=== PATIENT | male | born 1960 | race Caucasian/White ===

== ENCOUNTER 2020-04-27 12:00 | Outpatient (RCR) | payer OTHER, SELFPAY ==
--- NOTE | 2020-04-25 13:35 | MHC.PT.EP ---
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 pt presents to physical therapy with pain, decreased range of motion, decreased strength, impaired functional mobility, impaired postural awareness, and gait deviations. pt is a good candidate for skilled PT due to age, potential remediation of impairments, typical disease/condition progression and prognosis, comorbidities, and motivation. pt would benefit from tailored strengthening and stretching exercise program, functional training, gait training, postural re-training, neuromuscular re-education, and modalities as needed for pain. Plan is 2x/wk for 4 wks. Frequency and Duration: The patient will be seen 2x/wk for 4 wks Short Term Goals: pt will be I w/ HEP to promote self-management of condition. pt will improve lumbar flexion by 15% to facilitate ease in reaching for objects on the ground. [employer] Goals: pt will report <2/10 low back pain w/ ambulation of 5 x 30' to facilitate return to household ambulation. pt will perform STS transfer w/ no UE assist w/ reports of <2/10 low back pain. Treatment Plan: Modalities to reduce pain, spasms and effusion Manual therapy to restore motion and function Therapeutic exercise to improve strength and flexibility Neuromuscular re-education for posture and balance Therapeutic activities to return to functional activities of daily living Therapeutic Exercise Dynamic Therapeutic Activities Neuromuscular Re-ed Manual Therapies Joint Mobilization Taping Gait Home Exercise Program Patient Education Electrical Stimulation Hot or Cold Pack Please sign and return to therapist. Thank you for your referral.
--- NOTE | 2020-05-10 15:15 | MHC.PT.DC ---
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 Per [facility] Therapy policy, which the patient was aware of and signed, he is discharged for noncompliance. He has a home exercise program of thoracolumbar active range of motion and bilateral lower extremity stretching. Electronically signed by: aKity Garcia PT, DPT Please sign and return to therapist. Thank you for your referral.
== END 2020-05-10 15:16 | disposition other institution (70) ==
LOC: HO.PT 12:00
PROVIDERS: PCP Internal Medicine; Visit Provider Internal Medicine
DX: M47.816 Spondylosis without myelopathy or radiculopathy, lumbar region (principal)
CPT/HCPCS: 97110; 97161

== ENCOUNTER 2020-05-19 09:06 | Outpatient (REF) | payer OTHER, SELFPAY ==
[2020-05-19 10:06] LABS: MANUAL DIFF FLAG NO
[2020-05-19 10:18] LABS: Basophils Absolute Auto 0.1 X10*3/uL (0.0-0.2); Basophils Percent Auto 1.6 % (0-2); Eosinophils Absolute Auto 0.1 X10*3/uL (0.0-0.4); Eosinophils Percent Auto 1.6 % (0-4); Hematocrit 49.5 % (42-52); Hemoglobin 15.7 g/dl (14.0-18.0); Imm Gran Abs Auto 0.02 X10*3/uL (0.00-0.03); Imm Gran Pct Auto 0.3 % (0.0-0.4); Lymphocytes Absolute Auto 2.3 X10*3/uL (1.2-4.9); Lymphocytes Percent Auto 30.4 % (20-40); Mean Corpuscular HGB Conc 31.7 g/dl (31.0-36.0); Mean Corpuscular Hemoglobin 30.1 pg (27.0-33.0); Mean Platelet Volume 11.8 fL (9.4-12.4); Monocytes Absolute Auto 0.8 X10*3/uL (0.1-1.2); Monocytes Percent Auto 10.5 % (2-11); Neutrophils Absolute Auto 4.2 X10*3/uL (2.0-8.3); Neutrophils Percent Auto 55.6 % (45-73); Platelet Count 288 X10*3/uL (160-400); Red Blood Count 5.21 X10*6/uL (4.60-5.80); Red Cell Distribution Width 13.1 % (11.0-16.0); White Blood Count 7.5 X10*3/uL (4.8-10.8)
[2020-05-19 10:27] LABS: Estimated Average Glucose 114 mg/dL; Hemoglobin A1C 149.7871 umol/L; Hemoglobin A1c % 5.6 %
[2020-05-19 11:10] LABS: Alanine Aminotransferase 23 U/L (0-40); Albumin Level 4.4 g/dL (3.5-5.0); Alkaline Phosphatase 74 U/L (39-117); Anion Gap 15 (12-20); Aspartate Amino Transferase 25 U/L (5-37); Bilirubin Total 1.1 mg/dL (0.0-1.0); Blood Urea Nitrogen 11 mg/dL (9-16); Calcium 9.3 mg/dL (8.4-10.2); Carbon Dioxide 27 mmol/L (22-29); Chloride 102 mmol/L (96-108); Cholesterol 208 mg/dL; Estimated Glomerular Filt Rate > 60; Glucose Fasting 101 mg/dL (60-99); HDL Cholesterol 40 mg/dL; LDL Cholesterol Calculated 135 mg/dl; Potassium 4.6 mmol/l (3.3-5.1); Sodium 139 mmol/L (135-145); Total Protein 7.5 g/dL (6.5-8.0); Triglycerides 166 mg/dL
== END 2020-05-19 09:07 | disposition home or self-care (01) ==
LOC: HO.LAB 09:06
PROVIDERS: Visit Provider Physician Assistant
DX: Z13.1 Encounter for screening for diabetes mellitus (principal); Z13.220 Encounter for screening for lipoid disorders; Z12.5 Encounter for screening for malignant neoplasm of prostate
CPT/HCPCS: 36415; 80053; 80061; 83036; 84443; 85025

== ENCOUNTER 2020-06-22 12:00 | Outpatient (REF) | payer OTHER, SELFPAY ==
[2020-06-22 14:25] LABS: Glucose Urine UA NEG (NEG); Leukocyte Esterase Urine NEG (NEG); Nitrite Urine NEG (NEG); PH 8.5 (5.0-8.0); Urine Blood NEG (NEG); Urine Ketones NEG (NEG); Urine Protein NEG (NEG-TRACE)
[2020-06-22 14:29] LABS: Appearance Urine CLEAR; Color Urine YELLOW
[2020-06-22 14:32] LABS: Prostate Specific Antigen Scr 0.56 ng/mL (<0.05-4.0)
[2020-06-22 14:46] LABS: WBC Urine 0 /HPF (0-4)
[2020-06-22 14:47] LABS: RBC Urine 0 /HPF (0); Squamous Epithelial Cell Urine 1+ /LPF
== END 2020-06-22 12:01 | disposition home or self-care (01) ==
LOC: HO.LAB 12:00
PROVIDERS: PCP Internal Medicine; Visit Provider Internal Medicine
DX: R35.0 Frequency of micturition (principal)
CPT/HCPCS: 81001; 84153

== ENCOUNTER 2020-06-24 16:01 | Outpatient (REF) | payer OTHER, SELFPAY ==
--- NOTE | 2020-06-24 16:08 | US_ITS ---
EXAMINATION: US PELVIS LIMITED (BLADDER) CLINICAL INFORMATION: Frequency of micturition. COMPARISON: None TECHNIQUE: Real-time imaging of the bladder. FINDINGS: BLADDER: Partially distended. Bilateral ureteral jets are demonstrated. Prevoid bladder volume is 88.7 mL. Postvoid bladder volume is 16.2 mL. Patient is unable to distend the bladder as requested by PCP. ADDITIONAL FINDINGS: The prostate is better visualized postvoid with a volume of 19.0 mL. It appears homogeneous on the scan. US/US bladder IMPRESSION: Small prevoid volume of 88.7 mL and a small postvoid volume of 16.2 mL. Bilateral ureteral jets seen. =Normal prostate gland size.
== END 2020-06-24 16:02 | disposition home or self-care (01) ==
LOC: HO.US 16:01
PROVIDERS: PCP Internal Medicine; Visit Provider Internal Medicine
DX: R35.0 Frequency of micturition (principal)
CPT/HCPCS: 76857

== ENCOUNTER 2020-08-05 07:53 | Day surgery (SDC) | payer OTHER, SELFPAY ==
--- NOTE | 2020-08-04 09:14 | HO.ANESPROP2 ---
Documented by User: Priscilla Melchor 08/04/20 09:15 HPI - Anesthesia Eval Consult details Narrative: 60yo M for Colonoscopy [facility] Past Medical History Medical History Tobacco abuse Family History Family History (Updated 05/25/20 @ 10:30 by ORQUIDEA Angela) Father No problems noted. Mother No problems noted. Surgical History Surgical History History of appendectomy Social History Social History (Updated 08/05/20 @ 09:41 by Sindy Storm) Smoking Status: Current every day smoker Cigarettes Per Day: 10 Smoked in Last 30 Days: Yes Use of substances other than those prescribed or required for medical reasons: No Advance Directives: No Advance Directives Information Provided: Yes Advance Directives Date on File: 09/02/19 Meds Allergies Allergy/AdvReac Type Severity Reaction Status Date / Time No Known Allergies Allergy Verified 08/05/20 09:02 [No Known Allergies*] Home Medications Medication Instructions Recorded Confirmed Type ibuprofen 800 mg tablet 800 mg PO Q6H 05/26/20 05/26/20 History baclofen 20 mg PO TID PRN 08/05/20 History Exam Exam Date and Time: August 04, [id number] Assessment and Plan Assessment Anesthesia Assessment: Chart Reviewed Documented by User: Sindy Storm 08/05/20 09:44 [facility] Past Medical History Medical History Tobacco abuse Family History Family History (Updated 05/25/20 @ 10:30 by ORQUIDEA Angela) Father No problems noted. Mother No problems noted. Family history of problems with anesthesia: No Surgical History Surgical History History of appendectomy History of Problems with Anesthesia: No Social History Social History (Updated 08/05/20 @ 09:41 by Sindy Storm) Smoking Status: Current every day smoker Cigarettes Per Day: 10 Smoked in Last 30 Days: Yes Use of substances other than those prescribed or required for medical reasons: No Advance Directives: No Advance Directives Information Provided: Yes Advance Directives Date on File: 09/02/19 Meds Allergies Allergy/AdvReac Type Severity Reaction Status Date / Time No Known Allergies Allergy Verified 08/05/20 09:02 [No Known Allergies*] Home Medications Medication Instructions Recorded Confirmed Type ibuprofen 800 mg tablet 800 mg PO Q6H 05/26/20 05/26/20 History baclofen 20 mg PO TID PRN 08/05/20 History Exam Height,Weight and Vital Signs: Vital Signs Temp Pulse Resp BP Pulse Ox 08/05/20 09:11 96.7 F L 54 16 119/75 99 Airway Mallampati Class: II TM Dist: >3cm Neck ROM: Full Loose/Missing/Broken Teeth: Yes (Bottom front right) Heart: RRR Lungs: CTAB Assessment and Plan Assessment Anesthesia Assessment: Anesthesia Plan Discussed and Chart Reviewed Final Anesthetic Review NPO: Yes ASA Class: II Final Preanesthetic Review: No Changes in Pt Med Stat, Meds/Allgs Chart Reviewed, Consent Obtained/Reviewed and Anes Risks/Benef Reviewed Patient Risk: Low Procedure Risk: Low Assessment/Block/Sedation in SS: Assess/Block/Sedation-SS Anesthetic Plan Anesthetic Plan: MAC: Disposition: Standard PACU
[2020-08-05 09:04] VITALS: BMI 22.1
[2020-08-05 09:11] VITALS: BP 119/75; PULSE 54; RESP 16; TEMP 35.9; O2SAT 99
[2020-08-05] MEDS: Lactated Ringers 1,000 ML 100 ML IVCONT (09:26)
--- NOTE | 2020-08-05 09:47 | W.PM.OPN ---
Operative Note Operative Note Date of Service: 08/05/20 Narrative: Pre-op diagnosis: Colon cancer screening Post-op diagnosis: other (Colon polyps, diverticulosis, hemorrhoids) Procedure: COLONOSCOPY TO CECUM WITH BIOPSIES, SNARE POLYPECTOMY AND SUBMUCOSAL INJECTION Consent: Indications for the procedure and potential complications of bleeding, perforation, reaction to medications and missed diagnosis were discussed with the patient and informed consent was obtained. Instrument: Olympus PCF H 190 L variable stiffness pediatric colonoscope Monitoring: Vital signs and clinical assessment, intermittent blood pressure monitoring, continuous EKG monitoring, Pulse oximetry and Carbon Dioxide monitoring were done throughout the procedure. Colon withdrawl time was 45 minutes. Procedure: The patient was placed in the left lateral decubitis position and pre-procedure medications were administered. After a digital rectal examination of the ano-rectum, the video colonoscope was inserted into the rectum and advanced through the colon to the cecum. The colonoscope was slowly withdrawn in a retrograde panoramic fashion and the colon mucosa was carefully examined including a retroflexed view of the rectum. Findings and interventions are described below. Procedure Difficulty: Without difficulty Findings: Terminal Ileum: Not evaluated Cecum: Normal Ascending Colon: An 8-10 mm sessile polyp removed with a hot snare. Transverse Colon: Two 10-15 mm sessile polyps in proximal TC removed with a hot snare. Four 10-20 mm sessile polyps in distal TC removed with a hot snare A 5 x 3 cms polyp/mass overlying a fold at 55 cms (splenic flexure) raised with normal saline (submucosal injection) and not amenable to removal. Four superficial biopsies were obtained and matthew ink injected proximal to the polyp. Descending Colon: Moderate diverticulosis Sigmoid Colon: A 10 - 12 mm sessile polyp removed with a hot snare and moderate diverticulosis Rectum: Two 10-12 mm sessile polyps removed with a hot snare Ano-rectum: Moderate internal hemorrhoids Colon preparation: Good after some irrigation Impression and Post Procedure Diagnosis: Colonoscopy Findings: 10 polyps removed. A 5 x 3 cms polyp/mass overlying a fold at 55 cms (splenic flexure) raised with normal saline and not amenable to removal. Four superficial biopsies were obtained and matthew ink injected proximal to the polyp. Moderate diverticulosis seen in the left colon Moderate hemorrhoids on retroflexed exam. Plan: Await pathology results Patient has an appointment on 08/17/20 in the GI Clinic with Dakota Ro, PA. Repeat Colonoscopy in 1-[address] Gutierrez - if no cancer in polyp at 55 cms - for polyp removal with hybrid APC. Above findings were reviewed with the patient and [colon polyps] and [diverticulosis] handouts were given in the discharge area BIOPSIES SHOWED: A. Colon, ascending, polypectomy: Tubular adenoma; no high grade dysplasia or carcinoma seen. B. Colon, transverse, polypectomy: Fragments of tubular adenoma; no high-grade dysplasia or carcinoma seen. C. Colon, transverse at 55 cm, polypectomy: Fragments of tubular adenoma; no high-grade dysplasia or carcinoma seen. D. Colon, transverse #2, polypectomies: Tubular and tubulovillous adenomas; no high grade dysplasia or carcinoma seen. E. Colon, sigmoid, polypectomy: Hyperplastic mucosal polyp. F. Rectum, polypectomy: Hyperplastic mucosal polyp. Surgeon: Jennifer Ashley MD Anesthesia: MAC (RORY Faulkner) Estimated blood loss (mL): 0 Pathology: other (A. Polyp AC, B. Polyp, TC, C. Polyp TC 55 cm, D. Polyps TC # 2, E. Polyp SC, F. Rectal polyp) Condition: stable Disposition: PACU
--- NOTE | 2020-08-05 09:47 | MHC.SHP ---
Pre-Procedural Eval Section A The patient is an INPATIENT: No The History & Physical has been completed within 30 days and I have reviewed it.: No Section B Chief Complaint: Screening Details of Present Illness: Colon cancer screening, lower abdominal pain Relevant Family History (Specify if Yes): No Relevant Social History: Tobacco Use Present Medications: see Short Stay Collaborative assessment Medical History: Significant History (Low Back pain) History of Previous Operations: Relevant previous surgery/procedure and date(s) (appendectomy) Allergies: Allergies Allergy/AdvReac Type Severity Reaction Status Date / Time No Known Allergies Allergy Verified 08/05/20 09:02 [No Known Allergies*] Review of Systems Sugical H&P ROS: Negative: Constitution, Cardiovascular and Respiratory and Yes, Specify: Gastrointestinal (lower abdominal pain) Exam Surgical H&P Exam: Normal: Heart, Normal: Lungs, Normal: Extremities and Normal: Abdomen Plan Diagnosis/Plan: Unchanged I have reviewed the history and physical and performed a pertinent physical examination on my patient. No changes have occurred unless specified.
[2020-08-05 11:01] VITALS: BP 117/72; PULSE 76; RESP 22; TEMP 35.6; O2SAT 100
[2020-08-05 11:16] VITALS: BP 133/76; PULSE 63; RESP 20; TEMP 36.2; O2SAT 100
[2020-08-05 11:31] VITALS: BP 120/74; PULSE 68; RESP 18; TEMP 36.2; O2SAT 98
--- NOTE | 2020-08-05 11:50 | HO.POSTANES ---
Post Anesthesia Evaluation Post Anesthesia Evaluation Vital Signs: Vital Signs Temp Pulse Resp BP Pulse Ox 08/05/20 11:31 97.2 F 68 18 120/74 98 08/05/20 11:16 97.2 F 63 20 133/76 100 08/05/20 11:01 96.0 F L 76 22 H 117/72 100 08/05/20 09:11 96.7 F L 54 16 119/75 99 Anesthesia: Monitored Mental Status: Awake Pain Control: Satisfactory Nausea/Vomiting: None Hydration: Adequate Anesthesia-Related Issues: No Anes. Related Issues
== END 2020-08-05 11:53 | disposition home or self-care (01) ==
PROVIDERS: PCP Internal Medicine; Visit Provider Internal Medicine Gastroenterology
PROC: 0DJD8ZZ Inspection of Lower Intestinal Tract, Via Natural or Artificial Opening Endoscopic (ICD-10-PCS; CPT 45378; principal; 2020-08-05 10:10)
DX: Z12.11 Encounter for screening for malignant neoplasm of colon (principal); D12.2 Benign neoplasm of ascending colon; D12.3 Benign neoplasm of transverse colon; K63.5 Polyp of colon; K62.1 Rectal polyp; K57.30 Diverticulosis of large intestine without perforation or abscess without bleeding; K64.8 Other hemorrhoids; F17.210 Nicotine dependence, cigarettes, uncomplicated; Z79.899 Other long term (current) drug therapy
CPT/HCPCS: 45385; 45380; 45381; 88305

== ENCOUNTER → 2020-08-17 11:06 | Outpatient (BNVA) | payer OTHER, SELFPAY | PROVIDERS: PCP Internal Medicine; Visit Provider Physician Assistant | DX: Z76.89 Persons encountering health services in other specified circumstances (principal) ==

== ENCOUNTER 2020-09-20 07:07 | Day surgery (SDC) | payer OTHER, SELFPAY ==
[2020-09-14 12:38] VITALS: BMI 23.3
--- NOTE | 2020-09-19 08:23 | HO.ANESPROP2 ---
Documented by User: Priscilla Melchor 09/19/20 08:24 HPI - Anesthesia Eval Consult details Narrative: 60yo M for Colonoscopy with Hybrid APC s/p colonoscopy with polypectomy 08/05/20 with [facility] Active Problems Active Problems: All Active Problems (Updated 09/14/20 @ 11:58 by Anne-Marie Houser) Lumbar spine pain (Acute) Colon cancer screening (Acute) Frequency of micturition (Acute) Impaired fasting glucose (Acute) Hypercholesterolemia (Acute) Colon polyps (Acute) Tobacco abuse (Acute) Past Medical History Medical History (Updated 09/14/20 @ 11:58 by Anne-Marie Houser) History of back pain History of pneumonia Tobacco abuse Family History Family History (Updated 09/15/20 @ 12:03 by Carmen Tomlinson [facility]) Father No problems noted. Mother No problems noted. Sister No problems noted. Sister No problems noted. Surgical History Surgical History (Updated 09/14/20 @ 11:57 by Anne-Marie Houser) History of appendectomy History of tooth extraction Hx of colonoscopy Social History Social History (Updated 09/20/20 @ 08:07 by Sindy Storm) Alcohol intake: current Alcohol intake frequency: 0-2 drinks per day Alcohol type: beer Smoking Status: Current every day smoker Tobacco Type: Cigarette Cigarettes Per Day: 10 Smoked in Last 30 Days: Yes Advance Directives: Yes Advance Directives Information Provided: No Advance Directives on File: No Advance Directives Date on File: 09/02/19 Recently lost weight without trying: No Meds Allergies Allergy/AdvReac Type Severity Reaction Status Date / Time No Known Allergies Allergy Verified 09/20/20 07:22 [No Known Allergies*] Home Medications Medication Instructions Recorded Confirmed Last Taken Type ibuprofen 800 mg tablet 800 mg PO Q6H 05/26/20 09/14/20 Unknown History baclofen 20 mg PO TID PRN 08/05/20 09/14/20 Unknown History Exam Exam Date and Time: September 19, [id number] Height,Weight and Vital Signs: Height 5 ft 9 in Weight 71.668 kg Assessment and Plan Assessment Anesthesia Assessment: Chart Reviewed Documented by User: Sindy Storm 09/20/20 08:08 HPI - Anesthesia Eval Consult details Narrative: Large polyp 5x3cm at 55cm found at colonoscopy in 08/11. Unable to be removed. For removal today. [facility] Past Medical History Medical History (Updated 09/14/20 @ 11:58 by Anne-Marie Houser) History of back pain History of pneumonia Tobacco abuse Family History Family History (Updated 09/15/20 @ 12:03 by Carmen Tomlinson [facility]) Father No problems noted. Mother No problems noted. Sister No problems noted. Sister No problems noted. Family history of problems with anesthesia: No Surgical History Surgical History (Updated 09/14/20 @ 11:57 by Anne-Marie Houser) History of appendectomy History of tooth extraction Hx of colonoscopy History of Problems with Anesthesia: No Social History Social History (Updated 09/20/20 @ 08:07 by Sindy Storm) Alcohol intake: current Alcohol intake frequency: 0-2 drinks per day Alcohol type: beer Smoking Status: Current every day smoker Tobacco Type: Cigarette Cigarettes Per Day: 10 Smoked in Last 30 Days: Yes Advance Directives: Yes Advance Directives Information Provided: No Advance Directives on File: No Advance Directives Date on File: 09/02/19 Recently lost weight without trying: No Meds Allergies Allergy/AdvReac Type Severity Reaction Status Date / Time No Known Allergies Allergy Verified 09/20/20 07:22 [No Known Allergies*] Home Medications Medication Instructions Recorded Confirmed Last Taken Type ibuprofen 800 mg tablet 800 mg PO Q6H 05/26/20 09/14/20 Unknown History baclofen 20 mg PO TID PRN 08/05/20 09/14/20 Unknown History Exam Height,Weight and Vital Signs: Vital Signs Temp Pulse Resp BP Pulse Ox 09/20/20 07:27 97.8 F 60 16 138/80 99 Airway Mallampati Class: II TM Dist: >3cm Neck ROM: Full Loose/Missing/Broken Teeth: Yes (No teeth) Heart: RRR Lungs: CTAB Assessment and Plan Assessment Anesthesia Assessment: Anesthesia Plan Discussed and Chart Reviewed Final Anesthetic Review NPO: Yes ASA Class: II Final Preanesthetic Review: No Changes in Pt Med Stat, Meds/Allgs Chart Reviewed, Consent Obtained/Reviewed and Anes Risks/Benef Reviewed Patient Risk: Low Procedure Risk: Low Assessment/Block/Sedation in SS: Assess/Block/Sedation-SS Anesthetic Plan Anesthetic Plan: GA Disposition: Standard PACU
[2020-09-20] VITALS (7 sets, daily range): BP systolic 121–144; BP diastolic 71–83; PULSE 54–60; RESP 16–20; TEMP 36.1–36.6; O2SAT 98–100
--- NOTE | 2020-09-20 07:20 | P.HPSUR_ITS ---
Pre-Procedural Eval Section B Chief Complaint: rectal polyp Relevant Family History (Specify if Yes): No Relevant Social History: Tobacco Use Present Medications: see Short Stay Collaborative assessment Medical History: Significant History (History of back pain History of pneumonia Tobacco abuse) History of Previous Operations: Relevant previous surgery/procedure and date(s) (History of appendectomy History of tooth extraction Hx of colonoscopy) Allergies: Allergies Allergy/AdvReac Type Severity Reaction Status Date / Time No Known Allergies Allergy Verified 09/15/20 12:03 [No Known Allergies*] Review of Systems Sugical H&P ROS: Negative: Constitution, Cardiovascular, Respiratory, Neurological, Psychiatric, Hem-Onc, Allergic/Immunologic, Gastrointestinal, Genitourinary, Musculoskeletal, Integumentary, Endocrine and Eyes/Ears/Nose/Throat Exam Surgical H&P Exam: Normal: HEENT, Normal: Heart, Normal: Lungs, Normal: Extremit ies, Normal: Abdomen, Normal: Skin and Normal: Neurological Plan Diagnosis/Plan: Unchanged I have reviewed the history and physical and performed a pertinent physical examination on my patient. No changes have occurred unless specified.
[2020-09-20] MEDS: Lactated Ringers 1,000 ML 100 ML IVCONT (07:43)
--- NOTE | 2020-09-20 10:12 | PM.OP ---
Brief Operative Note Date of Service: 09/20/20 Post-op diagnosis: same Procedure: see op note Surgeon: Pacheco Gutierrez MD Anesthesia: GETA and MAC Estimated blood loss (mL): 0 Condition: stable Disposition: PACU
--- NOTE | 2020-09-20 10:13 | W.PM.OPN ---
Operative Note Operative Note Date of Service: 09/20/20 Narrative: Operative Information Procedure Description: Colonoscopy COLONOSCOPY Instrument: Olympus variable stiffness pediatric scope 190L Colonoscopy Monitoring: Vital signs and clinical assessment, continuous EKG monitoring, Pulse oximetry, Carbon Dioxide monitoring and blood pressure monitoring were done throughout the procedure. Colon withdrawal time was 45 minutes. Procedure: The patient was placed in the left lateral decubitis position and pre-procedure medications were administered. After a digital rectal examination of the ano-rectum, the video colonoscope was inserted into the rectum and advanced through the colon to the cecum/TI. The colonoscope was slowly withdrawn in a retrograde panoramic fashion and the colon mucosa was carefully examined including a retroflexed view of the rectum. Findings and interventions are described below. Procedure Difficulty:easy Findings: Terminal Ileum-normal Cecum:normal Ascending Colon: normal Transverse Colon -normal Splenic flexure- 5 x 4 cm granular laterally spreading polypoid lesion noted. This was injected using ERBE jet with saline/methylene blue and lifted. It was then piece meal resected. Further injections of saline were performed after the polypoid tissue was debulked and then straight fire APC applied to the margins and the resected polyp area. 5 clips were then applied for closure of the defect. another 2 sessile polyps noted adjacent to the area in the transverse colon and removed with cold snare. Descending Colon:normal Sigmoid Colon: normal Rectum: Retroflexion with medium sized internal hemorrhoids, grade I Anorectum - normal Colon preparation: [place] Bowel Preparation Scale Right colon; 3 Transverse colon: 3 Left colon; 3 (0 = Unprepared colon segment with mucosa not seen due to solid stool that cannot be cleared. 1 = Portion of mucosa of the colon segment seen, but other areas of the colon segment not well seen due to staining, residual stool and/or opaque liquid. 2 = Minor amount of residual staining, small fragments of stool and/or opaque liquid, but mucosa of colon segment seen well. 3 = Entire mucosa of colon segment seen well with no residual staining, small fragments of stool or opaque liquid) Impression and Post Procedure Diagnosis: polyps s/p hybrid APC and cold snare resection internal hemorrhoids Plan: High fiber diet leaflet Avoid straining at stool, epsom salts and sitz bath, anusol supps or cream Repeat Colonoscopy in 3-4 months avoid nsaids for 5 days 7 d course of cipro and flagyl Above findings were reviewed with the patient and relevant handouts were provided if indicated.
== END 2020-09-20 11:26 | disposition home or self-care (01) ==
PROVIDERS: PCP Internal Medicine; Visit Provider Internal Medicine Gastroenterology
PROC: 0DJD8ZZ Inspection of Lower Intestinal Tract, Via Natural or Artificial Opening Endoscopic (ICD-10-PCS; CPT 45378; principal; 2020-09-20 08:30)
DX: K62.1 Rectal polyp (principal); D12.3 Benign neoplasm of transverse colon; K64.0 First degree hemorrhoids; Z79.1 Long term (current) use of non-steroidal anti-inflammatories (NSAID); Z79.899 Other long term (current) drug therapy; F17.210 Nicotine dependence, cigarettes, uncomplicated; Z87.01 Personal history of pneumonia (recurrent); Z87.898 Personal history of other specified conditions
CPT/HCPCS: 45388; 45385; 45381; 88305; C2618; J0690; J1100; J2250; J2370; J2405; J3010; Q9968

== ENCOUNTER 2021-01-19 06:59 | Outpatient (REF) | payer OTHER, SELFPAY ==
[2021-01-19 07:42] LABS: MANUAL DIFF FLAG NO
[2021-01-19 07:43] LABS: Basophils Absolute Auto 0.1 X10*3/uL (0.0-0.2); Basophils Percent Auto 1.2 % (0-2); Eosinophils Absolute Auto 0.1 X10*3/uL (0.0-0.4); Eosinophils Percent Auto 0.8 % (0-4); Hematocrit 51.3 % (42-52); Hemoglobin 17.2 g/dl (14.0-18.0); Imm Gran Abs Auto 0.03 X10*3/uL (0.00-0.03); Imm Gran Pct Auto 0.3 % (0.0-0.4); Lymphocytes Absolute Auto 2.2 X10*3/uL (1.2-4.9); Lymphocytes Percent Auto 22.1 % (20-40); Mean Corpuscular HGB Conc 33.5 g/dl (31.0-36.0); Mean Corpuscular Hemoglobin 31.9 pg (27.0-33.0); Mean Corpuscular Volume 95.2 fL (80-98); Mean Platelet Volume 10.9 fL (9.4-12.4); Monocytes Absolute Auto 1.1 X10*3/uL (0.1-1.2); Monocytes Percent Auto 11.3 % (2-11); Neutrophils Absolute Auto 6.4 X10*3/uL (2.0-8.3); Neutrophils Percent Auto 64.3 % (45-73); Platelet Count 251 X10*3/uL (160-400); Red Blood Count 5.39 X10*6/uL (4.60-5.80); Red Cell Distribution Width 15.3 % (11.0-16.0); White Blood Count 9.9 X10*3/uL (4.8-10.8)
[2021-01-19 08:12] LABS: Estimated Average Glucose 114 mg/dL; Hemoglobin A1c % 5.6 %
[2021-01-19 08:13] LABS: Alanine Aminotransferase 35 U/L (0-40); Albumin Level 4.3 g/dL (3.5-5.0); Alkaline Phosphatase 76 U/L (39-117); Anion Gap 14 (12-20); Aspartate Amino Transferase 56 U/L (5-37); Bilirubin Total 2.5 mg/dL (0.0-1.0); Blood Urea Nitrogen 16 mg/dL (9-16); Calcium 9.7 mg/dL (8.4-10.2); Carbon Dioxide 25 mmol/L (22-29); Chloride 105 mmol/L (96-108); Cholesterol 258 mg/dL; Estimated Glomerular Filt Rate > 60; Glucose Random 103 mg/dL (60-115); HDL Cholesterol 70 mg/dL; LDL Cholesterol Calculated 167 mg/dl; Potassium 5.1 mmol/L (3.3-5.1); Sodium 139 mmol/L (135-145); Total Protein 7.6 g/dL (6.5-8.0); Triglycerides 108 mg/dL
[2021-01-19 08:35] LABS: Free T4 (Free Thyroxine) 1.15 ng/dL (0.71-1.85)
[2021-01-19 08:44] LABS: Vitamin B12 156 pg/mL (200-900)
== END 2021-01-19 07:00 | disposition home or self-care (01) ==
LOC: HO.LAB 06:59
PROVIDERS: PCP Internal Medicine; Visit Provider Internal Medicine
DX: R73.01 Impaired fasting glucose (principal); E78.00 Pure hypercholesterolemia, unspecified
CPT/HCPCS: 36415; 80053; 80061; 82607; 82746; 83036; 84439; 84443; 85025

== ENCOUNTER 2023-07-19 16:17 | Outpatient (AMB) | payer OTHER, SELFPAY ==
--- NOTE | 2023-07-19 16:23 | MHC.PC.OV ---
Vital Signs 07/19/23 16:25 Height 5 ft 9 in Weight 164 lb 2 oz BMI 24.2 BP 120/70 Blood Pressure Location Lt brachial Position Sitting Pulse 76 Pulse Source Pulse Oximeter Pulse Oximetry (%) 98 Oxygen Delivery Method Room Air Intake Visit Reasons: Annual PE Intake Note: Patient is here today for a physical. 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 policy Accompanied by: Self / Same As Patient Allergies No Known Allergies [No Known Allergies*] Allergy (Verified 07/19/23 16:24) Medication List - Last Reconciled 07/19/23 by Kourtney Hogan MD bupropion HCl (Wellbutrin SR) 150 mg PO BID 12 weeks Tobacco use date assessed: 07/19/23 Dental Screening Dental Screen Date: 07/19/23 Did you have a dental visit in the last 12 months?: Yes Did you have a dental problem in the last 6 months where you did not have access to dental care?: No Was dental information given to patient?: Patient has dentist HPI Annual PE HPI Details 63-year-old male smoker with impaired glucose tolerance tubular adenoma of the colon hypercholesterolemia coming in for physical exam. Last seen in 2020. Patient had colonoscopy done in 2020 and was advised to get it done in 3-4 months. Ash [id number] [facility] Medical History (Updated 07/19/23 @ 17:21 by Kourtney Hogan MD) Scrotal wall abscess Colon polyps History of back pain History of pneumonia Tobacco abuse Surgical History Hx of colonoscopy History of tooth extraction History of appendectomy Family History (Updated 07/19/23 @ 16:35 by ORQUIDEA Gutierrez) Father No problems noted. Mother No problems noted. Sister No problems noted. Sister No problems noted. Social History (Updated 07/19/23 @ 16:58 by Kourtney Hogan MD) Housing: Other Housing Other:: with family Alcohol intake: current Alcohol intake frequency: a few times a month Alcohol type: beer Comment: 2x a month 4-5 drinks Patient Tobacco Use Status: Current everyday Tobacco user Tobacco use type: Cigarette Cigarette Packs Per Day: 1 Cigarettes Per Day: 20 Years Smoked: since 13 years old e-Cigarette/Vaping Use: Never Used Second Hand Smoke Exposure: Yes Advance Directives Date on File: 09/02/19 service: No Current occupational status: unemployed Current occupational exposures/hazards: No Cognitive needs: No Hearing needs: No Vision needs: No Questionnaire PHQ-9 Over the last 2 weeks, how often have you been bothered by any of the following problems? 1. Little interest or pleasure in doing things: not at all 2. Feeling down, depressed, or hopeless: not at all 3. Trouble falling or staying asleep, or sleeping too much: not at all 4. Feeling tired or having little energy: not at all 5. Poor appetite or overeating: not at all 6. Feeling bad about yourself - or that you are a failure or have let yourself or your family down: not at all 7. Trouble concentrating on things, such as reading the newspaper or watching television: not at all 8. Moving or speaking so slowly that other people could have noticed. Or the opposite - being so fidgety or restless that you have been moving around a lot more than usual: not at all 9. Thoughts that you would be better off or of hurting yourself in some way: not at all Total score: 0 Depression Screening Interpretation: Negative Depression Screening Done: Yes Source: Developed by Drs. Hitesh Darling, Poornima Mederos, Kb Jacobsen and colleagues, with an educational irish from [employer]. Thrive Questionnaire Date Thrive assessed: 07/19/23 I am a: Patient What is your living situation today?: I have a steady place to live Within the past 12 months, did the food you bought not last and you didn't have the money to get more?: Never true Within the past 12 months, did you worry whether your food would run out before you got money to buy more?: Never true Do you have trouble paying for medicines?: No Do you have trouble getting transportation to medical appointments?: No Do you have trouble paying your heating and electricity bill?: No Do you have trouble taking care of your child, family member or friend?: No Do you have trouble with day-to-day activities such as bathing, preparing meals, shopping, managing finances, etc.?: No Are you currently unemployed and looking for a job?: No Are you interested in more education?: No Currently or been in a relationship where the following occur: no concerns reported AUDIT C Alcohol Use Questionnaire (AUDIT-C) 1. How often do you have a drink containing alcohol?: Monthly or less 2. How many drinks containing alcohol do you have on a typical day when you are drinking?: 1 or 2 Total Score: 1 FRANCIA-7 AMB Questionnaire FRANCIA-7 Date FRANCIA - 7 assessed: 07/19/23 Feeling nervous, anxious, or on edge: 0 = Not at all Not being able to stop or control worryin = Not at all Worrying too much about different things: 0 = Not at all Trouble relaxin = Not at all Being so restless that it is hard to sit still: 0 = Not at all Becoming easily annoyed or irritable: 0 = Not at all Feeling afraid as if something awful might happen: 0 = Not at all Total FRANCIA-7 score (0-4 normal; 5-9 mild; 10-14 moderate; 15-21 severe): 0 Source: Developed by Drs. Hitesh Darling, Poornima Mederos, Kb Jacobsen and colleagues, with an educational irish from [employer]. Review of Systems Const Denies poor appetite and Denies weakness Eyes Denies no additional complaints ENT Reports Normal hearing present, Denies dizziness, Denies nasal congestion, Denies tinnitus and Denies sore throat Card Denies chest pain, Denies syncope, Denies rapid heart rate and Denies dyspnea Resp Denies cough and Denies dyspnea GI Denies change in stool character, Reports constipation, Denies diarrhea, Denies nausea and Denies vomiting Denies dysuria and Denies urinary frequency Neuro Reports Normal hearing present, Denies confusion, Denies dizziness, Denies syncope and Denies weakness Psych Denies confusion Physical exam (Primary Care) Vital Signs: Last Vital Signs Pulse 76 07/19/23 16:25 BP 120/70 07/19/23 16:25 Pulse Ox 98 07/19/23 16:25 Oxygen Delivery Method Room Air 07/19/23 16:25 BMI result Body Mass Index 24.2 Tobacco/Smoking Status: Tobacco use Status Tobacco use date assessed 07/19/23 07/19/23 16:37 Patient Tobacco Use Status Current everyday Tobacco 07/19/23 16:37 Tobacco use type Cigarette 07/19/23 16:37 e-Cigarette/Vaping Use Never Used 07/19/23 16:37 PHQ-9: PHQ-9 Score PHQ-9: Total score 0 07/19/23 16:46 Depression Screening Interpretation: Negative Thrive Assessment: Date of Thrive Assessment Date Thrive assessed 07/19/23 07/19/23 16:37 Currently or been in a relationship where the following occur: no concerns reported Const General: No confusion Orientation/consciousness: No confusion HENMT Head: Yes normocephalic Ears: external ears normal and TM's normal bilaterally Face and sinus: Yes normal facial exam Mouth: moist mucous membranes Throat: Yes tonsils normal Eyes Conjunctivae: conjunctivae normal Pupils: Equal, round and reactive pupils present and Pupil accommodation reflex normal Direct Ophthalmoscopy: normal light reflex Neck Neck: No lymphadenopathy Thyroid: Thyroid normal Chest Chest palpation & inspection: normal inspection of the chest Resp Effort & Inspection: normal respiratory effort and no audible wheezes Auscultation: clear to auscultation bilaterally, no crackles, no wheezes and lung sounds not diminished Cardio Rate: regular rate Rhythm: regular rhythm Peripheral pulses: radial pulses present and dorsalis pedis present GI Palpation (GI): no masses Auscultation: normal bowel sounds and normoactive bowel sounds Rectal Exam - Male: Yes deferred Skin General skin exam: no rashes or lesions noted Rashes: no rashes Neuro General: No confusion Cranial nerves: Yes Equal, round and reactive pupils present and Yes Normal hearing present Cognition (Neuro): normal cognition Gait exam (Neuro): Normal gait present Motor exam (neuro): 5/5 motor strength present throughout Deep tendon reflexes (DTR's): Right brachioradialis reflex intensity grade: 2+, Left brachioradialis reflex intensity grade: 2+, Right patellar reflex intensity grade: 2+ and Left patellar reflex intensity grade: 2+ Extrem General: No edema Assessment and Plan Assessment & Plan (1) Annual physical exam: Code(s): Z00.00 - Encounter for general adult medical examination without abnormal findings (2) Vitamin B 12 deficiency: Code(s): E53.8 - Deficiency of other specified B group vitamins Plan: Will need to retest (3) Impaired fasting glucose: Code(s): R73.01 - Impaired fasting glucose Plan: Decrease the amount of carbohydrate intake, pasta, bread, rice and potatoes are all sugar and that is aside from all the sweet stuff, remember that fruits are good but they are Sweet also. (4) Hypercholesterolemia: Code(s): E78.00 - Pure hypercholesterolemia, unspecified Plan: Avoid fried foods, chicken skin, eggs, butter margarine, pastries and meat. Be it pork or beef they have a lot of cholesterol LDL goal of less than 130 and triglyceride of less than 150 (5) Tubular adenoma of colon: Code(s): D12.6 - Benign neoplasm of colon, unspecified Plan: Reminded about colonoscopy (6) Tobacco abuse: Code(s): Z72.0 - Tobacco use Plan: Strongly advised to stop smoking (7) Mass of postauricular area: Code(s): R22.0 - Localized swelling, mass and lump, head (8) Scrotal cyst: Code(s): L72.9 - Follicular cyst of the skin and subcutaneous tissue, unspecified Orders: Orders Complete Blood Count Auto Diff Today E78.00 - Pure hypercholesterolemia, unspecified Free T4 (Free Thyroxine) Today E78.00 - Pure hypercholesterolemia, unspecified Thyroid Stimulating Hormone Today E78.00 - Pure hypercholesterolemia, unspecified Hemoglobin A1c Today R73.01 - Impaired fasting glucose Intrinsic Factor Antibodies Today E53.8 - Deficiency of other specified B group vitamins Comprehensive Met. Panel Today E78.00 - Pure hypercholesterolemia, unspecified Vitamin B12 and Folate Today E78.00 - Pure hypercholesterolemia, unspecified Lipid Panel Today E78.00 - Pure hypercholesterolemia, unspecified Prostate Specific Antigen Scr Today R73.01 - Impaired fasting glucose Parietal Cell Antibody Today E53.8 - Deficiency of other specified B group vitamins Referrals Gastroenterology Referral D12.6 - Benign neoplasm of colon, unspecified Thoracic Surgery Referral Z72.0 - Tobacco use Urology Referral L72.9 - Follicular cyst of the skin and subcutaneous tissue, unspecified General Surgery Referral R22.0 - Localized swelling, mass and lump, head Medications: New bupropion HCl (Wellbutrin SR) 150 mg PO BID 12 weeks 168 tabs 0RF Z72.0 - Tobacco use Coding Level of Care Code Est Pt Prev Care 40-64y([id number]) Diagnoses Annual physical exam Z00.00 Vitamin B 12 deficiency E53.8 Impaired fasting glucose R73.01 Hypercholesterolemia E78.00 Tubular adenoma of colon D12.6 Tobacco abuse Z72.0 Mass of postauricular area R22.0 Scrotal cyst L72.9
[2023-07-19 16:25] VITALS: BP 120/70; PULSE 76; O2SAT 98; BMI 24.2
== END 2023-07-19 17:31 | disposition home or self-care (01) ==
PROVIDERS: PCP Internal Medicine; Visit Provider Internal Medicine
DX: Z00.00 Encounter for general adult medical examination without abnormal findings (principal); E53.8 Deficiency of other specified B group vitamins; R73.01 Impaired fasting glucose; E78.00 Pure hypercholesterolemia, unspecified; D12.6 Benign neoplasm of colon, unspecified; Z72.0 Tobacco use; R22.0 Localized swelling, mass and lump, head; L72.9 Follicular cyst of the skin and subcutaneous tissue, unspecified
CPT/HCPCS: 99396

== ENCOUNTER 2023-07-26 09:50 | Outpatient (AMB) | payer OTHER, SELFPAY ==
--- NOTE | 2023-07-26 10:04 | AM.OFFVISNUR ---
Intake Intake Visit Reasons: flu vaccine Allergies No Known Allergies [No Known Allergies*] Allergy (Verified 07/19/23 16:24) Office Procedures Flu Questionnaire Does the patient have a severe egg allergy?: No Does the patient have severe life threatening allergies?: No Does the patient have a fever or illness today?: No Has the patient ever had Guillain-Mesa Syndrome?: No Has the patient ever had any past reaction to a flu shot?: No Immunizations flu vacc [id number] 6mos up(PF) 60 mcg(15 mcgx4)/0.5 mL IM syringe Performing Provider: Kourtney Hogan MD Performing Location: [facility] Administered by: TIFFANIE Griffith on 07/26/23 10:04 Dose Route Admin Location Dispensed Lot Number Expiration Date NDC Crm Manager 0.5 mL IM Right Deltoid 0.5 mL [id number] 01/19/24 22415-642-45 [employer] VIS Given Date VIS Provided VIS Publication Date 07/26/23 Single Vaccine 21 Eligibility Eligibility Date Funding Source Not [facility] Eligible 07/26/23 Private Coding Assessment & Plan Assessment & Plan Orders: Orders Influenza [id number] Immunization Today Z23 - Encounter for immunization
== END 2023-07-26 14:16 | disposition home or self-care (01) ==
PROVIDERS: PCP Internal Medicine; Visit Provider Internal Medicine
DX: Z23 Encounter for immunization (principal)
CPT/HCPCS: 90471; 90686

== ENCOUNTER 2023-09-20 10:02 | Outpatient (AMB) | payer OTHER, SELFPAY ==
--- NOTE | 2023-09-20 10:06 | A.OFFVIS_ITS ---
Intake Intake Visit Reasons: LDCT SD Allergies No Known Allergies [No Known Allergies*] Allergy (Verified 07/19/23 16:24) HPI HPI Comments History of Present Illness Details Rg is a pleasant 63 year old male, current smoker with a 50 PYH. Patient has been smoking since age 13 for 50 years at 1 ppd. Denies marijuana use. 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 Denies second hand smoke exposure. Denies known family history of lung cancer. Denies personal history of cancers. Denies chest CT in last year. Denies recent travel outside the [place]. Denies testing positive for COVID. Admits receiving COVID Vaccine x 3. Denies fever, chills, chest pain, new cough, hemoptysis or unintentional weight loss. Lung Cancer Screening Questionnaire reviewed with patient by provider. Shared Decision Making Completed. Discussed in detail with patient, the risk versus benefit of LDCT screening. Patient in agreement of proceeding with scan. [facility] Medical History (Updated 09/03/23 @ 13:19 by Janie Mayfiled NP) Scrotal wall abscess Colon polyps History of back pain History of pneumonia Tobacco abuse Surgical History Hx of colonoscopy History of tooth extraction History of appendectomy Family History (Updated 07/19/23 @ 16:35 by ORQUIDEA Gutierrez) Father No problems noted. Mother No problems noted. Sister No problems noted. Sister No problems noted. Social History (Updated 07/19/23 @ 16:58 by Kourtney Hogan MD) Housing: Other Housing Other:: with family Alcohol intake: current Alcohol intake frequency: a few times a month Alcohol type: beer Comment: 2x a month 4-5 drinks Patient Tobacco Use Status: Current everyday Tobacco user Tobacco use type: Cigarette Cigarette Packs Per Day: 1 Cigarettes Per Day: 20 Years Smoked: since 13 years old e-Cigarette/Vaping Use: Never Used Second Hand Smoke Exposure: Yes Advance Directives Date on File: 09/02/19 service: No Current occupational status: unemployed Current occupational exposures/hazards: No Cognitive needs: No Hearing needs: No Vision needs: No Assessment & Plan Assessment & Plan (1) Nicotine dependence, cigarettes, uncomplicated: Code(s): F17.210 - Nicotine dependence, cigarettes, uncomplicated Plan Shared decision-making visit completed today in office. This patient meets criteria for LDCT for lung cancer screening purposes and is asymptomatic. Ricky mojica smoking cessation. Patient has been scheduled for a low dose chest CT for screening purposes at [facility]. We discussed how the results will be obtained depending on CT findings. RADS 1 and RADS 2 will receive a letter with results and will follow up for annual LDCT. Patient informed they will be contacted at later date to schedule upcoming LDCT scan. RADS 3 and RADS 4 will receive a telephone call, or an office visit after reviewing case at our Lung Cancer Conference to determine when the next LDCT will be scheduled or further interventions that may be needed. Discussed importance of screening program and compliance with yearly LDCT scan as scheduled. Risks, benefits, and alternatives were discussed in detail and patient agrees to proceed. Risks discussed include but are not limited to: radiation exposure and possibility of additional intervention for benign disease. Benefits include detection of lung cancer at an early stage. A copy of today's visit and LDCT results will be sent to patient's PCP. Incidental findings on LDCT are PCP's responsibility. If there are incidental findings, our office will ensure that PCP office is aware of these findings. All questions were answered and patient is in agreement of plan. Coding Level of Care Code Lung Cancer Screening G0296 Diagnoses Nicotine dependence, cigarettes, uncomplicated F17.210
== END 2023-09-20 13:09 | disposition home or self-care (01) ==
PROVIDERS: PCP Internal Medicine; Referring Provider Internal Medicine; Visit Provider Nurse Practitioner Family
DX: F17.210 Nicotine dependence, cigarettes, uncomplicated (principal)
CPT/HCPCS: G0296

== ENCOUNTER 2023-09-20 10:17 | Outpatient (REF) | payer OTHER, SELFPAY ==
--- NOTE | ~2023-09-20 | CT_ITS ---
EXAMINATION: CT CHEST SCREENING CLINICAL INFORMATION: Current smoker. COMPARISON: CT chest 08/29/2019. TECHNIQUE: Multidetector volumetric CT imaging of the chest is performed without contrast using low-dose technique. Additional 2D coronal and sagittal reformatted images and axial 3D maximum intensity projection (MIP) images are generated on the CT workstation. This CT examination was performed using dose optimization techniques as appropriate, variously including the following: *Automated exposure control *Adjustment of mA and/or kV according to patient size (this includes techniques or standardized protocols for targeted exams where dose is matched to indication/reason for exam; i.e. extremities or head) *Use of iterative reconstruction technique DLP: 47 mGy-cm FINDINGS: LUNGS: Mild emphysematous changes are present along with peribronchial thickening. Scattered calcified pulmonary granulomas are seen, unchanged from prior. The previously seen dense consolidation in the right lower lobe has resolved since the prior study. The lungs are otherwise clear with no evidence of inflammation or concerning nodules. MEDIASTINUM: The mediastinum is normal. CORONARY ARTERY CALCIFICATION: None visualized on this study. PLEURA: There is no pleural effusion. No pleural mass or thickening. AXILLA: No lymphadenopathy. UPPER ABDOMEN: Unremarkable. OSSEOUS STRUCTURES: Unremarkable. CT/CT lung screening IMPRESSION: Mild emphysema and peribronchial thickening with scattered granulomas. No suspicious lung masses are seen. ASSESSMENT: Lung-RADS category 2: Benign. RECOMMENDATION: Routine annual low-dose CT screening in 12 months.
== END 2023-09-20 10:18 | disposition home or self-care (01) ==
LOC: HO.CT 10:17
PROVIDERS: PCP Internal Medicine; Visit Provider Nurse Practitioner Family
DX: Z12.2 Encounter for screening for malignant neoplasm of respiratory organs (principal); F17.210 Nicotine dependence, cigarettes, uncomplicated
CPT/HCPCS: 71271; G0296

== ENCOUNTER 2023-09-30 07:40 | Outpatient (AMB) | payer OTHER, SELFPAY ==
--- NOTE | 2023-09-30 07:52 | MHC.OFFVIS ---
Intake Vital Signs 09/30/23 08:03 Height 5 ft 9 in Weight 161 lb BMI 23.8 BP 143/66 H Blood Pressure Location Lt brachial Position Sitting Pulse 76 Intake Visit Reasons: pre colonoscopy screening Intake Note: Patient follow up for pre colonoscopy screening. Patient denies any GI issues. Commercial Finance Analyst Required: Yes Commercial Finance Analyst Name: Murphy [id number] Accompanied by: Self / Same As Patient Allergies No Known Allergies [No Known Allergies*] Allergy (Verified 09/30/23 09:42) Medication List - Last Reconciled 09/30/23 by Anaya Ro PA-C bupropion HCl (Wellbutrin SR) 150 mg PO BID 12 weeks HPI HPI Comments History of Present Illness Details Commercial Finance Analyst device - A 63 y/o male seen in the office back in2020-been had colonoscopy 09/2020 however he never followed Up after colonoscopy with polypectomy- he never returned for repeat colonoscopy as recommended We reviewed previous colonoscopy with pathology as below He has been in [place] until- recent- no procedures there-Apppetite good-Bowels normal He is trying to quit smoking- He has no nausea, vomiting, hematemesis, hematochezia fever or chills 09/2020- Dr. BHARDWAJ Impression and Post Procedure Diagnosis: polyps s/p hybrid APC and cold snare resection internal hemorrhoids Plan: High fiber diet leaflet Avoid straining at stool, epsom salts and sitz bath, anusol supps or cream Repeat Colonoscopy in 3-4 months avoid nsaids for 5 days 7 d course of cipro and flagyl Name: Eda JoshiRg Age/Sex: 60/M Attending: Pacheco Bhardwaj MD : 1960 Submitted by: Pacheco Bhardwaj MD Copies to: Kourtney Hogan MD MR #: [id number] Status: [facility] Collected: 09/20/20 Location: [facility] Received: 09/20/20 Diagnosis A. Colon, splenic flexure, polypectomy: Fragments of tubular adenoma; negative for high grade dysplasia and carcinoma. B. Colon, transverse, polypectomy: Fragments of tubular adenoma; negative for high grade dysplasia and carcinoma. Clinical History Pre-Op Dx: Colon polyp Post-Op Dx: Colon polyps, hemorrhoids Microscopic Description Microscopic sections reviewed. Material Received A: Splenic flexure polyp, methylene blue used B: Transverse colon polyp Gross Description Received in two parts. Part A: Received in formalin labeled Splenic flexure polyp are multiple irregular and papular fragments of focally blue, dye-stained and verde-brown tissue, ranging from minute to 0.6 cm. in greatest dimension and aggregating 1.8 x 1.2 x 0.1 - 0.4 cm. Sectioning the larger fragments reveals filiform, verde cut surfaces. The specimen is entirely submitted in a single cassette labeled A. Part B: Received in formalin labeled Transverse colon polyp are several glistening, focally hyperemic and congested, focally blue, dye-stained, verde-pink, irregular, rectangular and papular tissue fragments, ranging from 0.3 to 0.6 cm. in greatest dimension and aggregating 1.2 x 1.2 x 0.4 cm. Sectioning the larger papular fragments reveals filiform, verde-pink cut surfaces. The specimen is entirely submitted in a single cassette labeled B. CEDS Copies To Pacheco Bhardwaj MD [address] [place], [place] [address]Nicolas Patient: Eda Page 1 of 2 me: Rg Corona Age/Sex: 60/M Attending: Jennifer Ashley MD : 1960 Submitted by: Jennifer Ashley MD Copies to: MR #: [id number] Status: [facility] Collected: 08/05/20 Location: [facility] Received: 08/05/20 Diagnosis A. Colon, ascending, polypectomy: Tubular adenoma; no high grade dysplasia or carcinoma seen. B. Colon, transverse, polypectomy: Fragments of tubular adenoma; no high-grade dysplasia or carcinoma seen. C. Colon, transverse at 55 cm, polypectomy: Fragments of tubular adenoma; no high-grade dysplasia or carcinoma seen. D. Colon, transverse #2, polypectomies: Tubular and tubulovillous adenomas; no high grade dysplasia or carcinoma seen. E. Colon, sigmoid, polypectomy: Hyperplastic mucosal polyp. F. Rectum, polypectomy: Hyperplastic mucosal polyp. Clinical History Pre-Op Dx: Screening Post-Op Dx: Colon polyps, hemorrhoids, diverticulosis Microscopic Description A-F. Microscopic sections reviewed. Material Received A. Ascending colon polyp B. Transverse colon polyp C. Transverse colon polyp at 55 D. Transverse colon polyps #2 E. Sigmoid polyp F. Rectal polyp Gross Description Received in six parts. Part A: Received in formalin labeled Ascending colon polyp is a 0.25 cm. in greatest dimension, glistening, semitranslucent, soft, verde-pink, irregular tissue fragment, which is submitted in toto in a single cassette labeled A. Patient: Eda Page 1 of 2 [facility] Medical History Tubulovillous adenoma Scrotal wall abscess Colon polyps History of back pain History of pneumonia Tobacco abuse Surgical History Hx of colonoscopy History of tooth extraction History of appendectomy Family History Father No problems noted. Mother No problems noted. Sister No problems noted. Sister No problems noted. Social History Housing: Other Housing Other:: with family Alcohol intake: current Alcohol intake frequency: a few times a month Alcohol type: beer Comment: 2x a month 4-5 drinks Patient Tobacco Use Status: Current everyday Tobacco user Tobacco use type: Cigarette Cigarette Packs Per Day: 1 Cigarettes Per Day: 20 Years Smoked: since 13 years old e-Cigarette/Vaping Use: Never Used Second Hand Smoke Exposure: Yes Advance Directives Date on File: 09/02/19 service: No Current occupational status: unemployed Current occupational exposures/hazards: No Cognitive needs: No Hearing needs: No Vision needs: No Review of Systems Const All systems reviewed & are unremarkable except as noted in HPI and below Card Reports chest pain and Denies dyspnea Resp Denies dyspnea Physical Exam Vital Signs: Last Vital Signs Pulse 76 09/30/23 08:03 BP 143/66 H 09/30/23 08:03 BMI result Body Mass Index 23.8 Const General: cooperative, healthy appearing, comfortable, no acute distress and alert Orientation/consciousness: patient oriented x3 Limitations: language barrier Eyes Conjunctivae: conjunctival abnormal (injected bilat) Resp Effort & Inspection: normal respiratory effort and able to speak in complete sentences Auscultation: clear to auscultation bilaterally, no rales, no rhonchi and no wheezes Cardio Rate: regular rate Rhythm: regular rhythm Heart sounds: S1 normal heart sound present and S2 normal heart sound present GI Palpation (GI): Soft to palpation and nontender Auscultation: normal bowel sounds Neuro General: patient oriented x3 Extrem General: Yes full ROM Psych Appearance: well kempt Mental Status: mental status grossly normal Speech and movement: Normal speech and movement present Affect: normal affect Attitude: cooperative Thought process: Normal thought process present Thought content: Normal thought content present Assessment & Plan Assessment & Plan (1) Tubular adenoma of colon: Comment: Overdue for polyp surveillance Code(s): D12.6 - Benign neoplasm of colon, unspecified (2) Tubulovillous adenoma: Code(s): D36.9 - Benign neoplasm, unspecified site Plan colon- try w/ Bhardwaj- pls MG Needs interp pls Orders: Orders Colonoscopy - GI Use Only Today D12.6 - Benign neoplasm of colon, unspecified, D36.9 - Benign neoplasm, unspecified site Complete Blood Count Auto Diff Today D12.6 - Benign neoplasm of colon, unspecified, D36.9 - Benign neoplasm, unspecified site Comprehensive Met. Panel Today E78.00 - Pure hypercholesterolemia, unspecified, R73.01 - Impaired fasting glucose Medications: New bisacodyl (Dulcolax (bisacodyl)) Day before procedure @ 12 noon Take 4 tablets by mouth followed by large glass of water 20 mg (4 x 5 mg) PO ONCE 1 day PRN 4 tabs 0RF colonoscopy prep Z12.11 - Encounter for screening for malignant neoplasm of colon polyethylene glycol 3350 (Miralax) Take as directed by mouth the day before your procedure. 238 grams PO ONCE 1 day 238 grams 0RF laxative effect Patient Instructions: colon- try w/ Bhardwaj- pls MG prep reviewed, literature given Reinforced importance of follow through Will update labs and system get CBC and a CMP Encouraged to call questions or concerns Coding Level of Care Code New Pt Level 3 (31280) Diagnoses Tubular adenoma of colon D12.6 Tubulovillous adenoma D36.9 Time Spent (min) 30 Comment [id number]
[2023-09-30 08:03] VITALS: BP 143/66; PULSE 76; BMI 23.8
== END 2023-09-30 08:46 | disposition home or self-care (01) ==
PROVIDERS: PCP Internal Medicine; Visit Provider Physician Assistant
DX: D12.6 Benign neoplasm of colon, unspecified (principal); D36.9 Benign neoplasm, unspecified site
CPT/HCPCS: 99203

== ENCOUNTER → 2023-09-30 07:40 | Outpatient (BNVA) | payer OTHER, SELFPAY | PROVIDERS: PCP Internal Medicine; Visit Provider Physician Assistant | DX: M79.89 Other specified soft tissue disorders (principal); D12.6 Benign neoplasm of colon, unspecified; D36.9 Benign neoplasm, unspecified site | CPT/HCPCS: 99202 ==

== ENCOUNTER 2023-09-30 09:18 | Outpatient (AMB) | payer OTHER, SELFPAY ==
--- NOTE | 2023-09-30 09:35 | MHC.OFFVIS ---
Intake Vital Signs 09/30/23 09:39 Height 5 ft 9 in Weight 166 lb BMI 24.5 BP 149/73 H Blood Pressure Location Rt brachial Position Sitting Pulse 69 Intake Visit Reasons: scalp cyst Intake Note: Patient referred by PCP Dr. Hogan for evaluation of growth on Lt postauricular ear. Present for 1yr. Similar lesion growing on Rt side. Patient c/o: bad odor when squeezed. Cleans with alcohol. Parlor Chaperone Required: No Accompanied by: Self / Same As Patient Allergies No Known Allergies [No Known Allergies*] Allergy (Verified 09/30/23 09:42) HPI HPI Comments History of Present Illness Details Patient presents with approximate 1 year history of a left postauricular mass/lesion. His increasing in size, become more symptomatic. He wished to have removed. He has a smaller version this on the right postauricular area but is not symptomatic yet. Chart was reviewed and patient evaluated [facility] Medical History Tubulovillous adenoma Scrotal wall abscess Colon polyps History of back pain History of pneumonia Tobacco abuse Surgical History Hx of colonoscopy History of tooth extraction History of appendectomy Family History Father No problems noted. Mother No problems noted. Sister No problems noted. Sister No problems noted. Social History Housing: Other Housing Other:: with family Alcohol intake: current Alcohol intake frequency: a few times a month Alcohol type: beer Comment: 2x a month 4-5 drinks Patient Tobacco Use Status: Current everyday Tobacco user Tobacco use type: Cigarette Cigarette Packs Per Day: 1 Cigarettes Per Day: 20 Years Smoked: since 13 years old e-Cigarette/Vaping Use: Never Used Second Hand Smoke Exposure: Yes Advance Directives Date on File: 09/02/19 service: No Current occupational status: unemployed Current occupational exposures/hazards: No Cognitive needs: No Hearing needs: No Vision needs: No Physical Exam Vital Signs: Last Vital Signs Pulse 69 09/30/23 09:39 BP 149/73 H 09/30/23 09:39 BMI result Body Mass Index 24.5 HEENT Other: No gross cervical periclavicular axillary adenopathy. Patient has proximally 4 x 3 cm postauricular lesion consistent with a complex sebaceous cyst. Chest Other: Chest breath sounds bilaterally, HS 1 in 2 GI Other: Abdomen soft, benign Assessment & Plan Assessment & Plan (1) Soft tissue mass: Code(s): M79.89 - Other specified soft tissue disorders Plan Risks, benefits, alternatives of excision of this left postauricular soft tissue mass were reviewed with the patient and included but not limited to bleeding, infection, recurrence, numbness, pain, scarring, seroma formation, wound dehiscence and the patient wishes to proceed. All questions answered. Arrangements will be made for this. Coding Level of Care Code New Pt Level 5 (68231) Diagnoses Soft tissue mass M79.89
[2023-09-30 09:39] VITALS: BP 149/73; PULSE 69; BMI 24.5
== END 2023-09-30 10:32 | disposition home or self-care (01) ==
PROVIDERS: PCP Internal Medicine; Visit Provider Surgery
DX: M79.89 Other specified soft tissue disorders (principal)
CPT/HCPCS: 99204

== ENCOUNTER 2024-01-11 21:35 | Emergency (ER) | payer OTHER, SELFPAY ==
[2024-01-11 21:39] VITALS: BP 142/73; PULSE 87; RESP 18; TEMP 36.3; O2SAT 97; BMI 23.5
--- NOTE | 2024-01-12 00:30 | ED.GENADULT ---
HPI - General Adult General Chief complaint: General Medical Stated complaint: groin abscess Time Seen by Provider: 01/11/24 23:50 Source: patient and family Mode of arrival: ambulatory History of Present Illness ED Provider: Dr Dumont [facility] narrative: 63-year-old male with ongoing sores along ventral shaft of the penis, as well as on upper portion of suprapubic area along shaved line. Patient states this is been ongoing for months. Related Data Previous Rx's ?Medication ?Instructions ?Recorded bupropion HCl 150 mg tablet,12 hr 150 mg PO BID 12 weeks #168 tabs 07/19/23 sustained-release (Wellbutrin SR) bisacodyl 5 mg tablet,delayed 20 mg (4 x 5 mg) PO ONCE PRN 09/30/23 release (Dulcolax (bisacodyl)) colonoscopy prep 1 day #4 tabs polyethylene glycol 3350 17 238 g PO ONCE laxative effect 1 09/30/23 gram/dose oral powder (Miralax) day #238 grams cephalexin 500 mg capsule 500 mg PO BID 5 days #10 caps 01/12/24 doxycycline monohydrate 100 mg 100 mg PO BID 5 days #10 caps 01/12/24 capsule Allergies Allergy/AdvReac Type Severity Reaction Status Date / Time No Known Allergies Allergy Verified 01/11/24 21:41 [No Known Allergies*] Review of Systems Review of Systems: Pertinent positives and negatives as stated in [facility] Past Medical History Source: nursing notes reviewed Medical History Tubulovillous adenoma Scrotal wall abscess Colon polyps History of back pain History of pneumonia Tobacco abuse Surgical History Hx of colonoscopy History of tooth extraction History of appendectomy Family History Family History Father No problems noted. Mother No problems noted. Sister No problems noted. Sister No problems noted. Social History Social History Housing: Other Housing Other:: with family Alcohol intake: current Alcohol intake frequency: a few times a month Alcohol type: beer Comment: 2x a month 4-5 drinks Patient Tobacco Use Status: Current everyday Tobacco user Tobacco use type: Cigarette Cigarette Packs Per Day: 1 Cigarettes Per Day: 20 Years Smoked: since 13 years old e-Cigarette/Vaping Use: Never Used Second Hand Smoke Exposure: Yes Advance Directives: Yes Advance Directives on File: Yes Advance Directives Date on File: 09/02/19 Do you have a plan to hurt others: No Plan service: No Current occupational status: unemployed Current occupational exposures/hazards: No Cognitive needs: No Hearing needs: No Vision needs: No Physical Exam ED Vital Signs: Vital Signs - 24 hr 01/11/24 21:39 01/12/24 00:53 01/12/24 01:00 Temperature 97.4 F 98.2 F 98.2 F Pulse Rate 87 54 54 Respiratory Rate 18 16 16 Blood Pressure 142/73 H 120/65 120/65 Pulse Oximetry 97 97 97 Oxygen Delivery Method Room Air Room Air BMI result Body Mass Index 23.5 VITAL SIGNS: Reviewed. GENERAL: Well developed, well nourished, in no acute distress. HEAD: Normocephalic/atraumatic EYES: PERRLA, EOMI LUNGS: Normal breath sounds. No adventitious sounds or accessory muscle use. SpO2<97> CARDIOVASCULAR: Regular rate and rhythm without noted murmurs ABDOMEN: Soft, non-tender, non-distended with bowel sounds. : There is a small area of what appears to be folliculitis/associated with shaved area, there are cysts along the ventral shaft of the penis and on the scrotum where the penis lies on the scrotum MUSCULOSKELETAL: No tenderness, deformities, or effusions noted on gross inspection. EXTREMITIES: No cyanosis, clubbing or edema. SKIN: Inspection of the skin reveals no rashes NEUROLOGIC: Alert and oriented x 4. Strength and sensation to light touch were grossly intact x 4. Medications Administered Discontinued Medications Generic Name Dose Route Start Last Admin Trade Name Freq PRN Reason Stop Dose Admin Cephalexin HCl 500 mg 01/12/24 00:32 01/12/24 00:48 Cephalexin 500 Mg Capsule PO 01/12/24 00:33 500 mg ONCE ONE Administration Doxycycline Monohydrate 100 mg 01/12/24 00:32 01/12/24 00:48 Doxycycline Monohydrate 100 Mg Capsule PO 01/12/24 00:33 100 mg ONCE ONE Administration Medical Decision Making Medical Decision Making MDM Narrative: 63-year-old male with what appears to be a folliculitis on the suprapubic area, and then epidermoid cysts along the scrotum and shaft of the penis, these are not consistent with chancres/ulcerations/herpes. Patient instructed to use warm compresses and place on antibiotics and instructed to follow-up with his primary care doctor. Differential Diagnosis Differential Diagnoses: The differential diagnosis associated with the presentation includes Please see the discussion above Admission/Observation Consideration of admission/observation: Escalation of care including admission/observation considered Please see the discussion above Critical Care Time Critical Care Time Critical Care Time: Yes Total Critical Care Time: 30 Attestation: I personally attest to this time spent taking care of the patient. Discharge Plan Discharge Clinical Impression: Carbuncle and furuncle Patient Disposition: Home, Self-Care Instructions: Furunculosis and Carbunculosis (ED), Warm Compress or Soak (ED) Additional Instructions: 1. Complete entire course of antibiotics. 2. Continue with warm compresses. 3. Follow-up with your primary care doctor by calling the office on Saturday. Return to the ER for any worsening symptoms. Prescriptions: New doxycycline monohydrate 100 mg capsule 100 mg PO BID 5 Days Qty: 10 0RF cephalexin 500 mg capsule 500 mg PO BID 5 Days Qty: 10 0RF No Action bupropion HCl [Wellbutrin SR] 150 mg tablet sustained-release 12 hr 150 mg PO BID 84 Days Qty: 168 0RF bisacodyl [Dulcolax (bisacodyl)] 5 mg tablet,delayed release (DR/EC) 20 mg PO ONCE PRN (Reason: colonoscopy prep) 1 Days Qty: 4 0RF Rx Instructions: Day before procedure @ 12 noon Take 4 tablets by mouth followed by large glass of water polyethylene glycol 3350 [Miralax] 17 gram/dose powder 238 g PO ONCE 1 Days Qty: 238 0RF Rx Instructions: Take as directed by mouth the day before your procedure. Referrals: Po,Kourtney Clifford MD [Primary Care Provider] - Interventions: ED Discharge Assessment Last Done: 01/12/24 01:00 Discharge Date/Time: 01/12/24 01:01 Print Language: Greek
[2024-01-12] MEDS: cephALEXin 500 MG CAPSULE PO (00:48)
[2024-01-12] MEDS: Doxycycline Monohydrate 100 MG CAPSULE PO (00:48)
[2024-01-12 00:53] VITALS: BP 120/65; PULSE 54; RESP 16; TEMP 36.8; O2SAT 97
[2024-01-12 01:00] VITALS: BP 120/65; PULSE 54; RESP 16; TEMP 36.8; O2SAT 97
== END 2024-01-12 01:01 | disposition home or self-care (01) ==
PROVIDERS: Emergency Provider Student in an Organized Health Care Education/Training Program; PCP Internal Medicine
DX: N48.21 Abscess of corpus cavernosum and penis (principal); F17.210 Nicotine dependence, cigarettes, uncomplicated
CPT/HCPCS: 99282; 99283

== ENCOUNTER 2024-08-17 15:29 | Emergency (ER) | payer OTHER, SELFPAY ==
--- NOTE | ~2024-08-17 | CT_ITS ---
CLINICAL HISTORY: low back pain status post fall CT lumbar spine without contrast Comparison: None Findings: Normal vertebral body alignment. No acute fractures or dislocations. Multilevel degenerative changes of the lumbar spine with narrowing of the intervertebral disc space and osteophyte formation. There is vacuum phenomena in the L4-L5 and L5-S1. Normal visualized abdominal contents. IMPRESSION: No acute findings. This document has been electronically signed by: Yady Santo MD on 08/17/2024 17:26:09
[2024-08-17 15:35] VITALS: BP 151/75; PULSE 67; RESP 16; TEMP 37.1; O2SAT 97; BMI 21.4
--- NOTE | 2024-08-17 15:38 | ED_ITS ---
HPI - General Adult General Chief complaint: Fall Stated complaint: fell 08/17 back pain Time Seen by Provider: 08/17/24 20:19 Source: patient Limitations: language barrier History of Present Illness ED Provider: Frida Malone PA-C HPI narrative: 64-year-old male with chronic back pain and hyperlipidemia presents after fall. Patient states he was walking his dog, he subsequently slipped on the ice falling backwards landing on his buttock and back. Patient now with pain across his entire lower back. Patient is experiencing muscle spasm. The pain does not radiate down either extremity. Denies weakness of lower extremities, paresthesia, urinary retention or bowel incontinence. Related Data Previous Rx's ?Medication ?Instructions ?Recorded bupropion HCl 150 mg tablet,12 hr 150 mg PO BID 12 weeks #168 tabs 07/19/23 sustained-release (Wellbutrin SR) bisacodyl 5 mg tablet,delayed 20 mg (4 x 5 mg) PO ONCE PRN 09/30/23 release (Dulcolax (bisacodyl)) colonoscopy prep 1 day #4 tabs polyethylene glycol 3350 17 238 g PO ONCE laxative effect 1 09/30/23 gram/dose oral powder (Miralax) day #238 grams cephalexin 500 mg capsule 500 mg PO BID 5 days #10 caps 01/12/24 doxycycline monohydrate 100 mg 100 mg PO BID 5 days #10 caps 01/12/24 capsule meloxicam 15 mg tablet 15 mg PO DAILY #7 tabs 08/17/24 methocarbamol 750 mg tablet 1,500 mg (2 x 750 mg) PO Q8H PRN 08/17/24 pain, moderate #20 tabs Allergies Allergy/AdvReac Type Severity Reaction Status Date / Time No Known Allergies Allergy Verified 08/17/24 15:38 [No Known Allergies*] Review of Systems Review of Systems: Yes all other systems are reviewed and are negative Constitutional: Constitutional: Denies fatigue and Denies fever(s) Cardiovascular: Cardiovascular: Denies chest pain and Denies dyspnea Respiratory: Respiratory: Denies dyspnea Gastrointestinal: Gastrointestinal: Denies abdominal pain Musculoskeletal: Musculoskeletal: Reports back pain, Denies muscle weakness, Denies numbness and Denies radiating pain into limb Neurologic: Denies numbness Endocrine: Endocrine: Denies fatigue PMF Past Medical History Attestation statement: The following information was validated with the patient. Medical History (Updated 08/17/24 @ 21:24 by YADY Myles) Tubular adenoma of colon Nicotine dependence, cigarettes, uncomplicated Scrotal wall abscess Colon polyps History of back pain History of pneumonia Surgical History (Updated 08/10/24 @ 13:12 by Janene Turner PA-C) History of colonoscopy History of tooth extraction History of appendectomy Family History Family History Father No problems noted. Mother No problems noted. Sister No problems noted. Sister No problems noted. Social History Social History Housing: Other Housing Other:: with family Alcohol intake: current Alcohol intake frequency: a few times a month Alcohol type: beer Comment: 2x a month 4-5 drinks Patient Tobacco Use Status: Current everyday Tobacco user Tobacco use type: Cigarette Cigarette Packs Per Day: 1 Cigarettes Per Day: 20 Years Smoked: since 13 years old e-Cigarette/Vaping Use: Never Used Second Hand Smoke Exposure: Yes Advance Directives: No Advance Directives Information Provided: No Advance Directives Date on File: 09/02/19 Do you have a plan to hurt others: No Plan service: No Current occupational status: unemployed Current occupational exposures/hazards: No Cognitive needs: No Hearing needs: No Vision needs: No Physical Exam ED Vital Signs: Vital Signs - 24 hr 08/17/24 15:35 08/17/24 20:41 Temperature 98.8 F 98.4 F Pulse Rate 67 61 Respiratory Rate 16 16 Blood Pressure 151/75 H 164/84 H Pulse Oximetry 97 97 Oxygen Delivery Method Room Air Room Air BMI result Body Mass Index 21.4 Const Other: Alert well-appearing Orientation/consciousness: patient oriented x3 Resp Effort & Inspection: normal respiratory effort Cardio Other: Normal peripheral perfusion Skin Other: Warm dry no rash Neuro Other: Antalgic gait General: patient oriented x3, no focal motor deficits and CN's II-XI intact bilaterally Psych Other: Cooperative Course Course Course Narrative: RME performed by Hermelinda Safnord PA-C. Patient is a 64 year old assigned male at presenting to the emergency department with low back pain after a slip and fall outside. Patient states that he was letting the dog out this morning when he slipped and fell, landing on his low back. Patient denies any head strike or loss of consciousness. Detailed physical exam and review of systems are deferred to the human resources designate. Imaging ordered. Patient placed back in the waiting room pending room availability and results. Medical Decision Making Medical Decision Making [facility] Narrative: 64-year-old male with chronic back pain and hyperlipidemia presents after fall. Patient states he was walking his dog, he subsequently slipped on the ice falling backwards landing on his buttock and back. Patient now with pain across his entire lower back. Patient is experiencing muscle spasm. The pain does not radiate down either extremity. Denies weakness of lower extremities, paresthesia, urinary retention or bowel incontinence. Problem: Age and chronic back pain History: Per patient I have considered the following differential diagnoses: Compression fracture, lumbar strain with spasm, lumbar radiculopathy, cauda equina Plan: Imaging ordered from triage, patient has degenerative changes there was no evidence of fracture. We will treat him for musculoskeletal strain without radicular symptoms. He has no red flag signs symptoms concerning for cord compression. I have independently reviewed the following tests: CT lumbar spine: Comparison: None Findings: Normal vertebral body alignment. No acute fractures or dislocations. Multilevel degenerative changes of the lumbar spine with narrowing of the intervertebral disc space and osteophyte formation. There is vacuum phenomena in the L4-L5 and L5-S1. Normal visualized abdominal contents. IMPRESSION: No acute findings. This document has been electronically signed by: Yady Santo MD on 08/17/2024 17:26:09 Discharge Plan Discharge Clinical Impression: Acute lumbar myofascial strain Patient Disposition: Home, Self-Care Instructions: Low Back Strain (ED), Core Strengthening Exercises (ED) Additional Instructions: The CT scan of your lower back revealed that you have arthritis, this is chronic. There were no fractures. You are being treated for low back strain. See home care instructions. Use the meloxicam as directed, this is an anti- inflammatory, take it daily with food. Use the methocarbamol as needed for fur ther pain and muscle spasm, this is a muscle relaxant. It will cause you to become drowsy, do not drive or operate machinery while taking the medication. Follow up with your primary care provider, you may require physical therapy as an outpatient. Prescriptions: New methocarbamol 750 mg tablet 1,500 mg PO Q8H PRN (Reason: pain, moderate) Qty: 20 0RF meloxicam 15 mg tablet 15 mg PO DAILY Qty: 7 0RF No Action doxycycline monohydrate 100 mg capsule 100 mg PO BID 5 Days Qty: 10 0RF cephalexin 500 mg capsule 500 mg PO BID 5 Days Qty: 10 0RF bupropion HCl [Wellbutrin SR] 150 mg tablet sustained-release 12 hr 150 mg PO BID 84 Days Qty: 168 0RF bisacodyl [Dulcolax (bisacodyl)] 5 mg tablet,delayed release (DR/EC) 20 mg PO ONCE PRN (Reason: colonoscopy prep) 1 Days Qty: 4 0RF Rx Instructions: Day before procedure @ 12 noon Take 4 tablets by mouth followed by large glass of water polyethylene glycol 3350 [Miralax] 17 gram/dose powder 238 g PO ONCE 1 Days Qty: 238 0RF Rx Instructions: Take as directed by mouth the day before your procedure. Stand Alone Forms: Work/School Release Print Language: Montserratian
[2024-08-17 20:41] VITALS: BP 164/84; PULSE 61; RESP 16; TEMP 36.9; O2SAT 97
[2024-08-17] MEDS: Ketorolac Tromethamine 15 MG/ML VIAL IM (21:23)
[2024-08-17 21:49] VITALS: BP 164/84; PULSE 61; RESP 16; TEMP 36.9; O2SAT 97
== END 2024-08-17 21:49 | disposition home or self-care (01) ==
PROVIDERS: Emergency Provider Emergency Medicine
DX: S39.012A Strain of muscle, fascia and tendon of lower back, initial encounter (principal); W00.0XXA Fall on same level due to ice and snow, initial encounter; M54.50 Low back pain, unspecified; Y93.K1 Activity, walking an animal; Y92.414 Local residential or business street as the place of occurrence of the external cause; Y99.9 Unspecified external cause status
CPT/HCPCS: 72131; 96372; 99283; 99284; J1885

== ENCOUNTER → 2024-08-17 15:38 | Outpatient (BNV) | payer OTHER, SELFPAY | PROVIDERS: Visit Provider Nuclear Medicine | DX: M51.360 Other intervertebral disc degeneration, lumbar region with discogenic back pain only (principal) | CPT/HCPCS: 72131 ==

== ENCOUNTER 2024-08-23 08:52 | Emergency (ER) | payer SELFPAY ==
[2024-08-23 08:56] VITALS: BP 135/80; PULSE 69; RESP 18; TEMP 36.5; O2SAT 100; BMI 22.1
--- NOTE | 2024-08-23 09:40 | ED.GENADULT ---
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 He reports his back pain began after sliping on ice while walking his dog, falling backwards and landing on his buttocks/ low back. He was evaluated at [facility] ED at that time with negative CT scans. He was prescribed meloxicam and methocarbamol which he has been taking at home with minimal improvement. Endorses continued low back pain. Pain runs along his lower back. No radiation. No new injury/ trauma/ falls. He states he is supposed to return to work tomorrow however is concerned and would like his work note extended. Denies hx of IVDU. Denies previous spinal surgery. Denies saddle anesthesia, bowel/bladder incontinence or retention, numbness/tingling/weakness of the lower extremities, dysuria, hematuria, fever/chills. Related Data Previous Rx's ?Medication ?Instructions ?Recorded bupropion HCl 150 mg tablet,12 hr 150 mg PO BID 12 weeks #168 tabs 07/19/23 sustained-release (Wellbutrin SR) bisacodyl 5 mg tablet,delayed 20 mg (4 x 5 mg) PO ONCE PRN 09/30/23 release (Dulcolax (bisacodyl)) colonoscopy prep 1 day #4 tabs polyethylene glycol 3350 17 238 g PO ONCE laxative effect 1 09/30/23 gram/dose oral powder (Miralax) day #238 grams cephalexin 500 mg capsule 500 mg PO BID 5 days #10 caps 01/12/24 doxycycline monohydrate 100 mg 100 mg PO BID 5 days #10 caps 01/12/24 capsule meloxicam 15 mg tablet 15 mg PO DAILY #7 tabs 08/17/24 methocarbamol 750 mg tablet 1,500 mg (2 x 750 mg) PO Q8H PRN 08/17/24 pain, moderate #20 tabs lidocaine 5 % topical patch 1 patch topical DAILY #15 ea 08/23/24 (Lidoderm) prednisone 50 mg tablet 50 mg PO DAILY 5 days #5 tabs 08/23/24 Allergies Allergy/AdvReac Type Severity Reaction Status Date / Time No Known Allergies Allergy Verified 08/23/24 09:00 [No Known Allergies*] Review of Systems Review of Systems: Constitutional: No fever, chills, fatigue, night sweats, weight changes ENT/Mouth: No ear pain, hearing loss, nasal congestion, sinus pain, rhinorrhea, sore throat Eyes: No eye pain, swelling, redness, vision changes, discharge Cardio: No chest pain, palpitations, MORGAN, orthopnea, peripheral edema Pulm: No SOB, cough, sputum, wheezing, dyspnea, hemoptysis GI: No nausea, vomiting, hematemesis, abdominal pain, diarrhea, constipation, hematochezia, melena : No irregular bleeding, dysuria, frequency, urgency, hesitancy, hematuria, flank pain, urinary flow changes, urinary incontinence or retention MSK: +back pain, No neck pain, joint pain, myalgias Skin: No lesions, rashes Neuro: No weakness, numbness, paresthesias, LOC, dizziness, headache All other systems reviewed and are negative. [facility] Past Medical History Attestation statement: The following information was validated with the patient. Source: old records reviewed and nursing notes reviewed Medical History Tubular adenoma of colon Nicotine dependence, cigarettes, uncomplicated Scrotal wall abscess Colon polyps History of back pain History of pneumonia Surgical History History of colonoscopy History of tooth extraction History of appendectomy Family History Family History Father No problems noted. Mother No problems noted. Sister No problems noted. Sister No problems noted. Social History Social History Housing: Other Housing Other:: with family Alcohol intake: current Alcohol intake frequency: a few times a month Alcohol type: beer Comment: 2x a month 4-5 drinks Patient Tobacco Use Status: Current everyday Tobacco user Tobacco use type: Cigarette Cigarette Packs Per Day: 1 Cigarettes Per Day: 20 Years Smoked: since 13 years old e-Cigarette/Vaping Use: Never Used Second Hand Smoke Exposure: Yes Advance Directives: No Advance Directives Information Provided: Yes Advance Directives Date on File: 09/02/19 Do you have a plan to hurt others: No Plan service: No Current occupational status: unemployed Current occupational exposures/hazards: No Cognitive needs: No Hearing needs: No Vision needs: No Physical Exam ED Vital Signs: Vital Signs - 24 hr 08/23/24 08:56 Temperature 97.7 F Pulse Rate 69 Respiratory Rate 18 Blood Pressure 135/80 Pulse Oximetry 100 Oxygen Delivery Method Room Air BMI result Body Mass Index 22.1 Vital signs stable, afebrile General: Well appearing, in no acute distress. Skin: Warm, dry, intact. No rashes or lesions. Head: Normocephalic, atraumatic. EENT: Hearing is intact b/l. Conjunctiva clear. PERRLA. EOM intact. Moist mucous membranes.? Neck: Supple without LAD Cardiac: Chest wall symmetric. RRR Lungs: Normal respiratory effort without accessory muscle use. CTA bilaterally. Abdomen: Soft, non-tender, non-distended. No rebound tenderness or guarding. Positive BS x4. no cvat. Back: No midline spinous tenderness or step-off deformity. There is bilateral lumbar paraspinal muscle tenderness to palpation without palpable spasm. Ext: Upper and lower extremities atraumatic, without tenderness, deformity, swelling or erythema. Full ROM throughout. Neuro: AOx3. Normal speech. Strength 5/5 intact throughout. No saddle anesthesia. Sensation intact to light touch. NV intact distally. Ambulating with steady gait. Psych: Appropriate mood and affect. Responds appropriately to questions. Medical Decision Making Medical Decision Making MDM Narrative: 64 year old Frisian speaking male with pmhx significant for chronic back pain and HDL presents to the ED today for evaluation of acute on chronic back pain x1 week. vital signs stable, afebrile. he is nontoxic appearing and in NAD. he is lying comfortably on the exam bed. on exam, there is no midline spinous tenderness or step-off deformity. There is bilateral lumbar paraspinal muscle tenderness to palpation without palpable spasm. no cvat. Concern for MSK sprain/strain, arthritis, muscle strain, muscle spasm. unlikely fracture, subluxation, disc herniation. Lower suspicion for UTI vs renal colic vs nephrolithiasis/ hydro. Unlikely cord compression, cauda equina, Guillain-Finlayson, epidural abscess. I reviewed CT lumbar spine obtained 5 days ago - no acute fracture or subluxation. He is exam is quite benign. there are no red flag symptoms. there has been no new injury or trauma to warrant repeat imaging. Toradol, solumedtrol, adn lido patch given in ED. Will send course of prednisone and lido patches to pharmacy for treatment. work note provided. Patient has remained stable throughout ED visit today. Discussed worrisome signs and symptoms and when to return to the ED. All questions answered at this time. Patient is agreeable with disposition and stable for discharge. Differential Diagnosis Differential Diagnoses: The differential diagnosis associated with the presentation includes as above Admission/Observation Not indicated. Independent Interpretation I performed an independent interpretation of an: CT Scan Interpretation: CT lumbar spine without fracture or subluxation Radiology Impression Discussion of test interpretation with radiology: I have reviewed the radiologist's reading. Radiologist Impression: CLINICAL HISTORY: low back pain status post fall CT lumbar spine without contrast Comparison: None Findings: Normal vertebral body alignment. No acute fractures or dislocations. Multilevel degenerative changes of the lumbar spine with narrowing of the intervertebral disc space and osteophyte formation. There is vacuum phenomena in the L4-L5 and L5-S1. Normal visualized abdominal contents. IMPRESSION: No acute findings. This document has been electronically signed by: Yady Santo MD on 08/17/2024 17:26:09 Independent Historian Clinical information obtained from an independent historian. History obtained from or confirmed by: Spouse External Record Review External record reviewed: Inpatient record Prescription Management I considered prescription management with: Other (prednisone) Chronic Conditions Patient?s care impacted by: Other (chronic back pain) Social Determinants Patient?s care significantly limited by Social Determinants of Health including: Other Social Determinant of Health Critical Care Time Critical Care Time Critical Care Time: No Discharge Plan Discharge Clinical Impression: Lumbar back pain Patient Disposition: Home, Self-Care Instructions: Back Pain (ED) Additional Instructions: You were evaluated in the Emergency Department today for your back pain.? Your evaluation did not show signs of medical conditions requiring emergent intervention at this time. The CT scan of your back obtained on 08/17/24 does not demonstrate any fractures. CT scans are a great tool to detect fractures. There is no indication to repeat imaging of your back today. Avoid bending, lifting, or twisting. Use ice several times per day for 20 minutes at a time for the next 48 hours and then change to heat. We recommend you take 600mg ibuprofen every 6 hours or tylenol 650mg every 6 hours as needed for pain. If needed, you can alternate these medications so that you take one medication every 3 hours. For example, at noon take ibuprofen, then at 3pm take tylenol, then at 6pm take ibuprofen. Prednisone is a steroid that has been sent to your pharmacy. Take this for 5 days, starting tomorrow. Lidoderm patches are numbing patches. Apply to painful areas. Please schedule an appointment for follow-up with your primary care provider this week for further evaluation of your symptoms. If pain persists, you may require physical therapy. Your PCP can facilitate this. Return to the Emergency Department if you experience worsening back pain, difficulty walking, fevers, numbness, tingling, incontinence, or any other concerning symptoms. In the case of an emergency call 911. Prescriptions: New prednisone 50 mg tablet 50 mg PO DAILY 5 Days Qty: 5 0RF Rx Instructions: take in the morning with food lidocaine [Lidoderm] 5 % adhesive patch,medicated 1 patch topical DAILY Qty: 15 0RF Rx Instructions: leave on most painful area for up to 12 hrs No Action methocarbamol 750 mg tablet 1,500 mg PO Q8H PRN (Reason: pain, moderate) Qty: 20 0RF meloxicam 15 mg tablet 15 mg PO DAILY Qty: 7 0RF doxycycline monohydrate 100 mg capsule 100 mg PO BID 5 Days Qty: 10 0RF cephalexin 500 mg capsule 500 mg PO BID 5 Days Qty: 10 0RF bupropion HCl [Wellbutrin SR] 150 mg tablet sustained-release 12 hr 150 mg PO BID 84 Days Qty: 168 0RF bisacodyl [Dulcolax (bisacodyl)] 5 mg tablet,delayed release (DR/EC) 20 mg PO ONCE PRN (Reason: colonoscopy prep) 1 Days Qty: 4 0RF Rx Instructions: Day before procedure @ 12 noon Take 4 tablets by mouth followed by large glass of water polyethylene glycol 3350 [Miralax] 17 gram/dose powder 238 g PO ONCE 1 Days Qty: 238 0RF Rx Instructions: Take as directed by mouth the day before your procedure. Referrals: [facility] Family Medicine [Provider Group] [facility] Primary Care, Paul [Provider Group] [facility] Primary Care,Fahad [Provider Group] Stand Alone Forms: Work/School Release Print Language: Frisian
[2024-08-23] MEDS: Ketorolac Tromethamine 30 MG/ML VIAL IM (09:57)
[2024-08-23] MEDS: methylPREDNISolone Sod Succ 125 MG/2 ML VIAL 60 MG IM (09:58)
[2024-08-23] MEDS: Lidocaine 4 % Patch ADH..PATCH 1 PATCH TRANSDERMA (10:00)
[2024-08-23 11:33] VITALS: BP 135/80; PULSE 69; RESP 18; TEMP 36.5; O2SAT 100
== END 2024-08-23 11:33 | disposition home or self-care (01) ==
PROVIDERS: Emergency Provider Emergency Medicine
DX: S39.92XA Unspecified injury of lower back, initial encounter (principal); W00.0XXA Fall on same level due to ice and snow, initial encounter; Y93.K1 Activity, walking an animal; Y92.480 Sidewalk as the place of occurrence of the external cause; Y99.8 Other external cause status; F17.210 Nicotine dependence, cigarettes, uncomplicated
CPT/HCPCS: 96372; 99283; 99284; J1885; J2919

== ENCOUNTER 2025-05-24 08:41 | Outpatient (REF) | payer MEDICARE, MEDICAID, SELFPAY ==
[2025-05-24 08:57] LABS: MANUAL DIFF FLAG NO
[2025-05-24 09:42] LABS: Hemoglobin 18.2 g/dl (14.0-18.0); Imm Gran Abs Auto 0.03 X10*3/uL (0.00-0.03); Imm Gran Pct Auto 0.4 % (0.0-0.4); Lymphocytes Absolute Auto 2.5 X10*3/uL (1.2-4.9); Mean Corpuscular HGB Conc 32.5 g/dl (31.0-36.0); Mean Corpuscular Hemoglobin 31.8 pg (27.0-33.0); Mean Corpuscular Volume 97.7 fL (80.0-98.0); NRBC Abs Auto 0.000 X10*3/uL (0.0-0.012); NRBC Pct Auto 0.0 /100WBC (0.0-0.2); Platelet Count 258 X10*3/uL (160-400); Red Blood Count 5.73 X10*6/uL (4.60-5.80); White Blood Count 7.4 X10*3/uL (4.8-10.8)
[2025-05-24 09:47] LABS: Hematocrit 56.0 % (42.0-52.0)
[2025-05-24 10:49] LABS: Alanine Aminotransferase 29 U/L (0-40); Albumin Level 4.6 g/dL (3.5-5.0); Alkaline Phosphatase 85 U/L (39-117); Anion Gap 12 (12-20); Aspartate Amino Transferase 34 U/L (5-37); Blood Urea Nitrogen 10 mg/dL (9-16); Calcium 9.6 mg/dL (8.4-10.2); Carbon Dioxide 27 mmol/L (22-29); Chloride 105 mmol/L (96-108); Cholesterol 307 mg/dL (<200); Estimated Glomerular Filt Rate > 60; HDL Cholesterol 45 mg/dL (>40); Potassium 3.8 mmol/L (3.3-5.1); Sodium 140 mmol/L (135-145); Total Protein 8.0 g/dL (6.5-8.0); Triglycerides 199 mg/dL (<150)
[2025-05-24 10:54] LABS: Free T4 (Free Thyroxine) 1.01 ng/dL (0.71-1.85); Thyroid Stimulating Hormone 1.42 uIU/mL (0.32-4.0)
[2025-05-24 11:01] LABS: Folate 12.3 ng/mL (> or = 4.0); Vitamin B12 257 pg/mL (200-900)
== END 2025-05-24 08:42 | disposition home or self-care (01) ==
LOC: HO.LAB 08:41
PROVIDERS: PCP Internal Medicine; Visit Provider Internal Medicine
DX: R73.01 Impaired fasting glucose (principal); E78.00 Pure hypercholesterolemia, unspecified; Z12.5 Encounter for screening for malignant neoplasm of prostate
CPT/HCPCS: 36415; 80053; 80061; 82607; 82746; 83036; 84153; 84439; 84443; 85025

== ENCOUNTER 2025-05-25 08:47 | Outpatient (AMB) | payer MEDICARE, MEDICAID, SELFPAY ==
[2025-05-25 08:56] VITALS: BP 128/76; PULSE 77; TEMP 36.4; O2SAT 98; BMI 24.0
--- NOTE | 2025-05-25 08:58 | A.OFFVIS_ITS ---
Intake Vital Signs 05/25/25 08:56 05/25/25 09:03 Height 5 ft 9 in Weight 162 lb 4 oz BMI 24.0 24.0 BP 128/76 Blood Pressure Location Rt brachial Position Sitting Pulse 77 Pulse Source Pulse Oximeter Temp 97.5 F Temp Source Temporal Artery Scan Pulse Oximetry (%) 98 Oxygen Delivery Method Room Air Intake Visit Reasons: Annual pe Registered Physical Therapist Required: Yes Registered Physical Therapist Language: Fijian Accompanied by: Significant Other Allergies No Known Allergies (No Known Allergies*) Allergy (Verified 05/25/25 08:59) Medication List - Last Reconciled 05/25/25 by Kourtney Hogan MD No Known Home Meds HPI Annual pe HPI Details [place] gastro, Dr. Mayo surgeon pulmonology [facility], interpret [place] [id number]. fall last 07/[address] scpine showing thoracolumbar degenerative disease, dizzy PFSH Medical History (Updated 05/25/25 @ 09:58 by Kourtney Hogan MD) Tubulovillous adenoma Tubular adenoma of colon Nicotine dependence, cigarettes, uncomplicated Scrotal wall abscess Colon polyps History of back pain History of pneumonia Surgical History History of colonoscopy History of tooth extraction History of appendectomy Family History Father No problems noted. Mother No problems noted. Sister No problems noted. Sister No problems noted. Social History (Updated 05/25/25 @ 09:34 by Kourtney Hogan MD) Housing: Other Housing Other:: with family Alcohol intake: current Alcohol intake frequency: a few times a month Alcohol type: beer Comment: QD 5 nips Patient Tobacco Use Status: Current everyday Tobacco user Tobacco use type: Cigarette Cigarette Packs Per Day: 1 Cigarettes Per Day: 20 Years Smoked: since 13 years old 1.5 packs a day e-Cigarette/Vaping Use: Never Used Second Hand Smoke Exposure: Yes Advance Directives Date on File: 09/02/19 service: No Current occupational status: unemployed Current occupational exposures/hazards: No Cognitive needs: No Hearing needs: No Vision needs: No Questionnaire Medicare Wellness Checkup [age] What gender do you identify with?: male During the past 4 weeks, how much have you been bothered by emotional problems such as feeling anxious, depressed, irritable, sad or downhearted, and blue?: slightly During the past 4 weeks, has your physical & emotional health limited your social activities with family, friends, neighbors, or groups?: slightly During the past 4 weeks, how much bodily pain have you generally had?: moderate pain During the past 4 weeks, was someone available to help you if you needed & wanted help?: yes, quite a bit During the past 4 weeks, what was the hardest physical activity you could do for at least 2 minutes?: heavy Can you get to places out of walking distance without help? (For eg., can you travel alone on buses, taxis or drive your car?): Yes Can you go shopping for groceries or clothes without someone's help?: No Can you prepare your own meals?: No Can you do your housework without help?: No Because of any health problems, do you need the help of another person with your personal care needs such as eating, bathing, dressing or getting around the house?: Yes Can you handle your own money without help?: No During the past 4 weeks, how would you rate your health in general?: fair During the past 4 weeks how have things been going for you?: pretty bad Are you having difficulties driving your car?: sometimes Do you always fasten your seat belt when you are in a car?: yes, usually During past 4 weeks, have you been bothered by the following: never: Teeth or denture problems?, seldom: Trouble eating well?, sometimes: Falling or dizzy when standing up, often: Tiredness or fatigue? and always: Sexual problems? and Problems using the telephone? Have you fallen 2 or more times in the past year?: Yes Are you afraid of falling?: Yes Are you a smoker?: yes, but I'm not ready to quit During the past 4 weeks, how many drinks of wine, beer, or other alcoholic beverages did you have?: 2-5 drinks per week Do you exercise for about 20 minutes 3 or more times a week?: no, I usually do not exercise this much Have you been given information to help with the following?: no: Hazards in your house that might hurt you? and no: Keeping track of your medications? How often do you have trouble taking medicines the way you have been told to take them?: I seldom take medications as prescribed How confident are you that you can control & manage most of your health problems?: very confident What is your race?: or origin or descent Review of Systems Const Denies poor appetite and Denies weakness Eyes Denies no additional complaints ENT Reports Normal hearing present, Denies dizziness, Denies nasal congestion, Denies tinnitus and Denies sore throat Card Denies chest pain, Denies syncope, Denies rapid heart rate and Denies dyspnea Resp Denies cough and Denies dyspnea GI Denies change in stool character, Reports constipation, Denies diarrhea, Denies nausea and Denies vomiting Denies dysuria and Denies urinary frequency Neuro Reports Normal hearing present, Denies confusion, Denies dizziness, Denies syncope and Denies weakness Psych Denies confusion Physical Exam Vital Signs: Last Vital Signs Temp 97.5 F 05/25/25 08:56 Pulse 77 05/25/25 08:56 BP 128/76 05/25/25 08:56 Pulse Ox 98 05/25/25 08:56 Oxygen Delivery Method Room Air 05/25/25 08:56 BMI result Body Mass Index 24.0 Const General: No confusion Orientation/consciousness: No confusion HEENT Head: Yes normocephalic Ears: external ears normal and TM's normal bilaterally Face and sinus: Yes normal facial exam Mouth: moist mucous membranes Throat: Yes tonsils normal Eyes Conjunctivae: conjunctivae normal Pupils: Equal, round and reactive pupils present and Pupil accommodation reflex normal Direct Ophthalmoscopy: normal light reflex Neck Neck: No lymphadenopathy Thyroid: Thyroid normal Chest Chest palpation & inspection: normal inspection of the chest Resp Effort & Inspection: normal respiratory effort and no audible wheezes Auscultation: clear to auscultation bilaterally, no crackles, no wheezes and lung sounds not diminished Cardio Rate: regular rate Rhythm: regular rhythm Peripheral pulses: radial pulses present and dorsalis pedis present GI Palpation (GI): no masses Auscultation: normal bowel sounds and normoactive bowel sounds Rectal Exam - Male: Yes deferred Skin General skin exam: no rashes or lesions noted Rashes: no rashes Neuro General: No confusion Cranial nerves: Yes Equal, round and reactive pupils present and Yes Normal hearing present Cognition (Neuro): normal cognition Gait exam (Neuro): Normal gait present Motor exam (neuro): 5/5 motor strength present throughout Deep tendon reflexes (DTR's): Right brachioradialis reflex intensity grade: 2+, Left brachioradialis reflex intensity grade: 2+, Right patellar reflex intensity grade: 2+ and Left patellar reflex intensity grade: 2+ Extrem General: No edema Office Procedures Flu Questionnaire Does the patient have a severe egg allergy?: No Does the patient have severe life threatening allergies?: No Does the patient have a fever or illness today?: No Has the patient ever had Guillain-Cloudcroft Syndrome?: No Has the patient ever had any past reaction to a flu shot?: No Immunizations Fluarix [id number] (PF) 45 mcg (15 mcg x 3)/0.5 mL IM syringe Performing Provider: Kourtney Hogan MD [facility] Administered by: Kallie Love CMA on 05/25/25 09:07 Dose Route Admin Location Dispensed Lot Number Expiration Date [facility] Controller Mechanic 0.5 mL IM Right Deltoid 0.5 mL [id number] 01/18/26 [id number] [facility] V[facility] Given Date VIS Provided VIS Publication Date 05/25/25 Single Vaccine 24 Eligibility Eligibility Date Funding Source Not [facility] Eligible 05/25/25 Private Assessment & Plan Assessment & Plan (1) Annual physical exam: Code(s): Z00.00 - Encounter for general adult medical examination without abnormal findings Plan: Patient is advised to eat healthy, keep well hydrated, keep active and have adequate sleep. (2) Nicotine dependence, cigarettes, uncomplicated: Comment: (onset 13yo, 1ppd x 51yrs, 50pyh) Code(s): F17.210 - Nicotine dependence, cigarettes, uncomplicated Plan: Patient is strongly advised to stop smoking!. Patient is enrolled in lung cancer screening program and has missed out on this years cat scan (3) Tubular adenoma of colon: Comment: (TA on 07/2020 & 09/2020 scopes) Code(s): D12.6 - Benign neoplasm of colon, unspecified Plan: Discussed about needing to have the colonoscopy done (4) Hypercholesterolemia: Code(s): E78.00 - Pure hypercholesterolemia, unspecified Plan: Avoid fried foods, chicken skin, eggs, butter margarine, pastries and meat. Be it pork or beef they have a lot of cholesterol LDL goal of less than 130 and triglyceride of less than 150. (5) Vitamin B 12 deficiency: Code(s): E53.8 - Deficiency of other specified B group vitamins Plan: Vitamin B12 1000 mcg once a day (6) Impaired fasting glucose: Code(s): R73.01 - Impaired fasting glucose Plan: Decrease the amount of carbohydrate intake, pasta, bread, rice and potatoes are all sugar and that is aside from all the sweet stuff, remember that fruits are good but they are Sweet also. (7) Erythrocytosis: Code(s): D75.1 - Secondary polycythemia Plan: Most likely from the smoking. Will continue to monitor (8) Generalized anxiety disorder: Code(s): F41.1 - Generalized anxiety disorder (9) Lumbar degenerative disc disease: Code(s): M51.36 - Other intervertebral disc degeneration, lumbar region (10) Alcohol abuse: Code(s): F10.10 - Alcohol abuse, uncomplicated (11) Frequency of micturition: Code(s): R35.0 - Frequency of micturition (12) Onychomycosis: Code(s): B35.1 - Tinea unguium Plan History of Present Illness The patient is a 65-year-old male presenting for an annual physical examination. His past medical history is significant for impaired glucose tolerance, hypercholesterolemia, and a tubular adenoma of the colon discovered on his last colonoscopy in September 2020, after which a repeat procedure in 3 to 4 months was advised. He has a history of smoking. The patient reported low back pain in August and had a negative CT of the lumbar spine. He also had a fall in July of this year and was told in the emergency room that he had arthritis in his lower back, with no fractures noted. The patient has no known drug allergies and is not currently taking any medications or [id number] supplements. Blood work from May showed erythrocytosis with a hemoglobin of 18.2, a hemoglobin A1c of 5.8%, high bilirubin, and hypercholesterolemia with an LDL of 111 mg/dL and triglycerides of 199 mg/dL. The results also indicated a low vitamin B12 level, while electrolytes, renal function, and thyroid function were normal. Socially, the patient smokes one and a half packs of cigarettes per day, which he attributes to anxiety, and drinks alcohol daily, consuming five nips. He is enrolled in a lung cancer screening program but missed a scheduled follow-up CT scan. Health Maintenance - Colon cancer screening: The patient has a history of tubular adenoma of the colon from a colonoscopy in September 2020 and was advised to have a repeat procedure, which has not yet been done. - Lung cancer screening: The patient is enrolled in a lung cancer screening program but has missed a scheduled CT scan. - Smoking cessation: The patient was strongly advised to stop smoking. - Hypercholesterolemia management: Discussed goals of an LDL < 100 mg/dL and triglycerides < 150 mg/dL. - Prediabetes management: Hemoglobin A1c was 5.8%, up from 5.6%. The patient was counseled on diet, specifically reducing intake of sugar and carbohydrates such as pasta, bread, and potatoes. Social History - Tobacco Use: Smokes one and a half packs of cigarettes per day, which he attributes to anxiety. - Alcohol Use: Drinks alcohol daily, consuming about five nips. - Transportation: The patient mentioned not having a car, which caused him to miss a scheduled appointment. Review of Systems - Neurological: Reports headaches. Denies syncope. - Cardiovascular: Denies chest pain. - Respiratory: Denies shortness of breath. - Gastrointestinal: Reports weekly heartburn. Denies nausea or vomiting. - Genitourinary: Reports urinary frequency, urgency, and nocturia about six times per night. Denies issues with bowel movements. - Musculoskeletal: Reports low back pain. - Psychiatric: Reports anxiety, which he feels is a trigger for smoking. Physical Exam General: Cooperative, healthy appearing, comfortable, no acute distress and well developed Orientation: Patient oriented x3 Limitations: Limited in the lung cancer screening program Head: Normal to inspection Ears: Hearing grossly normal bilaterally Nose: Normal external nose present Face and sinus: Normal facial exam Eyes: Appearance normal, both eyes and all related structures Neck: Normal visual inspection and Yes full ROM Respiratory: Normal respiratory effort and able to speak in complete sentences. Clear to auscultation bilaterally Cardiovascular: Regular rate and rhythm. Normal S1 and S2 GI: Normal to inspection. Soft to palpation and nontender Skin: No rashes or lesions noted Neuro: Patient oriented x3 Extremities: Normal to inspection Results - Labs (May): - Hemoglobin: 18.2 (erythrocytosis noted). - Hemoglobin A1c: 5.8%. - Lipid Panel: LDL 111 mg/dL, Triglycerides 199 mg/dL. - Vitamin B12: Low. - Other: Normal electrolytes, good renal function, high bilirubin, and normal thyroid function. - Imaging: - CT Lumbar Spine (recent): Negative for fractures; showed arthritis. Plan Patient was informed and verbally consented to the use of an ambient scribe for clinic note documentation during this visit. 1. Erythrocytosis The patient's elevated hemoglobin of 18.2 g/dL is most commonly seen in smokers, as the body produces more blood to compensate for lower oxygen levels. The lab work will be repeated to confirm the high count. If it remains elevated, a referral to a product support specialist will be made to rule out other causes, including blood cancer. 2. Tobacco Use Disorder The patient was strongly advised to stop smoking. He will be reminded to follow up with the lung cancer screening program, as he is already enrolled but missed his last scheduled CT scan. 3. Anxiety A referral will be made to a counselor for behavioral health support. A new medication will be started to help manage anxiety. The patient was instructed to take one tablet at night for the first three days, and then increase the dosage to two tablets per day. Written instructions will be provided. 4. Urinary Frequency And Nocturia To investigate the cause of his urinary frequency and nocturia, a urine test and a bladder ultrasound will be ordered. Prostate issues are a likely cause in a man of his age. 5. Impaired Glucose Tolerance The patient's hemoglobin A1c has risen to 5.8%, which is in the prediabetic range. He was counseled to monitor his diet, particularly by reducing sugar and carbohydrate intake, including foods like pasta, bread, and potatoes. No medication is required at this time. 6. History Of Colonic Polyps The patient was advised of the importance of scheduling his follow-up colonosco py given his history of a tubular adenoma. 7. Hypercholesterolemia The cholesterol goals of an LDL less than 100 mg/dL and triglycerides less than 150 mg/dL were discussed. 8. Vitamin B12 Deficiency The patient will begin taking vitamin B12 1000 mcg once a day by mouth. 9. Low Back Pain The patient was advised to perform daily stretching exercises to strengthen the muscles supporting his spine to help with his low back pain and arthritis. 10. Alcohol Use The patient was counseled on the risks associated with his level of alcohol consumption, including memory problems, and advised to decrease his intake. Discussion Notes I had a detailed discussion with the patient regarding his health status. I explained that his high blood count (erythrocytosis) is most likely a reaction to his chronic smoking, and we will repeat the lab test to confirm. If it remains high, I will refer him to a blood specialist. I strongly advised him to quit smoking and stressed the importance of following up with his lung cancer screening and colonoscopy. We discussed his rising hemoglobin A1c of 5.8%, and I provided dietary counseling to reduce sugar and carbohydrates to prevent progression to diabetes. To address his anxiety, which he links to his smoking, I am placing a referral to a behavioral health counselor and starting him on a new medication, providing clear instructions for its use. For his urinary symptoms, I explained that we will investigate with a urine test and a bladder ultrasound to assess for prostate issues. I also prescribed vitamin B12 for his deficiency and recommended daily stretching for his back pain. Patient Instructions - You are strongly advised to stop smoking. - Schedule your follow-up colonoscopy as it is overdue. - Follow up with your lung cancer screening appointment; you missed your last one. - Take one Vitamin B12 1000 mcg tablet by mouth every day. - For your anxiety medication, take 1 tablet at night for 3 days, and then i ncrease to 2 tablets a day. - A referral will be made for you to talk to a counselor. They will call you to schedule an appointment. - Try to reduce your daily alcohol intake. - Watch your diet by eating less sugar and carbohydrates like bread, pasta, and potatoes. - Please go to the lab for a urine test and to have your blood counts rechecked. - An order will be placed for you to get an ultrasound of your bladder. - Do stretching exercises every day for your lower back pain. Orders: Orders PT Evaluation and Treatment Today M51.36 - Other intervertebral disc degeneration, lumbar region UA CC w/rflx Micro + Cult Today R30.0 - Dysuria, R35.0 - Frequency of micturition Complete Blood Count Auto Diff 3 Months E78.00 - Pure hypercholesterolemia, unspecified Hemoglobin A1c Today E78.00 - Pure hypercholesterolemia, unspecified Influenza [id number] Immunization Today Z23 - Encounter for immunization US bladder Today R35.0 - Frequency of micturition Complete Blood Count Auto Diff 1 Week D75.1 - Secondary polycythemia Comprehensive Met. Panel 3 Months E78.00 - Pure hypercholesterolemia, unspeci fied Lipid Panel 3 Months E78.00 - Pure hypercholesterolemia, unspecified Vitamin B12 and Folate Today E78.00 - Pure hypercholesterolemia, unspecified Referrals Gastroenterology Referral D12.6 - Benign neoplasm of colon, unspecified Lung Cancer Screening Referral F17.210 - Nicotine dependence, cigarettes, uncomplicated Nutrition/Dietitian Referral E78.00 - Pure hypercholesterolemia, unspecified Psychiatry Referral F41.1 - Generalized anxiety disorder Urology Referral L72.9 - Follicular cyst of the skin and subcutaneous tissue, unspecified General Surgery Referral R22.0 - Localized swelling, mass and lump, head Medications: New cyanocobalamin (vitamin B-12) 1,000 mcg PO DAILY 30 caps 3RF D75.1 - Secondary polycythemia, E53.8 - Deficiency of other specified B group vitamins meloxicam 15 mg PO DAILY 30 tabs 0RF M51.36 - Other intervertebral disc degeneration, lumbar region atorvastatin (Lipitor) 20 mg PO DAILY 30 tabs 3RF E78.00 - Pure hypercholesterolemia, unspecified Refilled bupropion HCl SR (Wellbutrin SR) 150 mg PO BID 168 tabs 0RF 12 weeks F41.1 - Generalized anxiety disorder Coding Level of Care Code Medicare Subsequent (G0439) Diagnoses Annual physical exam Z00.00 Nicotine dependence, cigarettes, uncomplicated F17.210 Tubular adenoma of colon D12.6 Hypercholesterolemia E78.00 Vitamin B 12 deficiency E53.8 Impaired fasting glucose R73.01 Erythrocytosis D75.1 Generalized anxiety disorder F41.1 Lumbar degenerative disc disease M51.36 Alcohol abuse F10.10 Frequency of micturition R35.0 Onychomycosis B35.1
[2025-05-25 09:03] VITALS: BMI 24.0
== END 2025-05-25 10:10 | disposition home or self-care (01) ==
LOC: HO.HMCH 08:47
PROVIDERS: PCP Internal Medicine; Visit Provider Internal Medicine
DX: Z00.00 Encounter for general adult medical examination without abnormal findings (principal); F17.210 Nicotine dependence, cigarettes, uncomplicated; D12.6 Benign neoplasm of colon, unspecified; E78.00 Pure hypercholesterolemia, unspecified; E53.8 Deficiency of other specified B group vitamins; R73.01 Impaired fasting glucose; D75.1 Secondary polycythemia; F41.1 Generalized anxiety disorder; M51.369 Other intervertebral disc degeneration, lumbar region without mention of lumbar back pain or lower extremity pain; F10.10 Alcohol abuse, uncomplicated; R35.0 Frequency of micturition; B35.1 Tinea unguium; Z23 Encounter for immunization

== ENCOUNTER → 2025-05-25 08:47 | Outpatient (BNVA) | payer MEDICARE, MEDICAID, SELFPAY | PROVIDERS: PCP Internal Medicine; Visit Provider Internal Medicine | DX: Z23 Encounter for immunization (principal) | CPT/HCPCS: 90471; 90656 ==

== ENCOUNTER 2025-06-09 07:32 | Outpatient (REF) | payer MEDICARE, MEDICAID, SELFPAY ==
[2025-06-09 07:49] LABS: MANUAL DIFF FLAG NO
[2025-06-09 08:01] LABS: Hematocrit 54.2 % (42.0-52.0); Hemoglobin 18.1 g/dl (14.0-18.0); Imm Gran Abs Auto 0.02 X10*3/uL (0.00-0.03); Imm Gran Pct Auto 0.3 % (0.0-0.4); Lymphocytes Absolute Auto 2.7 X10*3/uL (1.2-4.9); Mean Corpuscular HGB Conc 33.4 g/dl (31.0-36.0); Mean Corpuscular Hemoglobin 32.1 pg (27.0-33.0); Mean Corpuscular Volume 96.1 fL (80.0-98.0); NRBC Abs Auto 0.000 X10*3/uL (0.0-0.012); NRBC Pct Auto 0.0 /100WBC (0.0-0.2); Platelet Count 222 X10*3/uL (160-400); Red Blood Count 5.64 X10*6/uL (4.60-5.80); White Blood Count 7.3 X10*3/uL (4.8-10.8)
[2025-06-09 08:22] LABS: Appearance Urine Clear; Glucose Urine UA Negative (Negative); PH 6.0 (5.0-9.0); Specific Gravity - Urine 1.025 (1.005-1.025); UMIC TRIGGER UACC YES
[2025-06-09 09:14] LABS: Folate 10.1 ng/mL (> or = 4.0); Vitamin B12 189 pg/mL (200-900)
== END 2025-06-09 07:33 | disposition home or self-care (01) ==
LOC: HO.LAB 07:32
PROVIDERS: PCP Internal Medicine; Visit Provider Internal Medicine
DX: L72.3 Sebaceous cyst (principal); N48.21 Abscess of corpus cavernosum and penis; D75.1 Secondary polycythemia; R35.0 Frequency of micturition; E78.00 Pure hypercholesterolemia, unspecified; R30.0 Dysuria; Z13.1 Encounter for screening for diabetes mellitus
CPT/HCPCS: 36415; 81001; 82607; 82746; 83036; 85025; 99202

== ENCOUNTER 2025-06-09 12:54 | Outpatient (AMB) | payer MEDICARE, MEDICAID, SELFPAY ==
--- NOTE | 2025-06-09 12:55 | MHC.OFFVIS ---
Vital Signs 06/09/25 12:56 Height 5 ft 9 in Weight 163 lb BMI 24.1 BP 152/83 H Blood Pressure Location Rt brachial Position Sitting Pulse 90 Intake Visit Reasons: mass and lump, head Intake Note: Patient referred by PCP Dr. Hogan for assessment of mass/ lump on Lt posterior ear. Present for 1yr. Patient c/o: itchy, painful. Oozes smelly yellowish discharge when squeezes it. 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 The lesion behind the ear has been present for some time and is starting to discharge with a foul odor and itchiness. A new lesion has been noted on the opposite ear. Additionally, the patient reports the presence of small lumps on the skin of the penis. [facility] Medical History Tubulovillous adenoma Tubular adenoma of colon Nicotine dependence, cigarettes, uncomplicated Scrotal wall abscess Colon polyps History of back pain History of pneumonia Surgical History History of colonoscopy History of tooth extraction History of appendectomy Family History Father No problems noted. Mother No problems noted. Sister No problems noted. Sister No problems noted. Social History Housing: Other Housing Other:: with family Alcohol intake: current Alcohol intake frequency: a few times a month Alcohol type: beer Comment: QD 5 nips Patient Tobacco Use Status: Current everyday Tobacco user Tobacco use type: Cigarette Cigarette Packs Per Day: 1 Cigarettes Per Day: 20 Years Smoked: since 13 years old 1.5 packs a day e-Cigarette/Vaping Use: Never Used Second Hand Smoke Exposure: Yes Advance Directives Date on File: 09/02/19 service: No Current occupational status: unemployed Current occupational exposures/hazards: No Cognitive needs: No Hearing needs: No Vision needs: No Review of Systems Const All systems reviewed & are unremarkable except as noted in HPI and below Physical Exam Vital Signs: Last Vital Signs Pulse 90 06/09/25 12:56 BP 152/83 H 06/09/25 12:56 BMI result Body Mass Index 24.1 Const General: cooperative, healthy appearing and comfortable HEENT Head: Yes normal to inspection, Yes normocephalic and Yes atraumatic Ears: hearing grossly normal bilaterally and other (On the skin of the posterior the left belkys he exhibits a 1 cm cyst) Eyes General: appearance normal, both eyes and all related structures Pupils: Equal, round and reactive pupils present EOM: EOMs intact bilaterally Neck Neck: Yes normal visual inspection Chest Chest palpation & inspection: normal inspection of the chest Resp Effort & Inspection: normal respiratory effort, able to speak in complete sentences and abnormal respiratory pattern Other: Declined Neuro Cranial nerves: Yes Equal, round and reactive pupils present Assessment & Plan Assessment & Plan (1) Sebaceous cyst of ear: Code(s): L72.3 - Sebaceous cyst Category: Medical Plan: Refer to ENT (2) Penile carbuncle: Comment: Refer to urology Code(s): N48.21 - Abscess of corpus cavernosum and penis Category: Medical Plan The patient will be referred to an software application tester for further evaluation and management of the skin lesion behind the left ear. The patient will be referred to a urologist for further evaluation and management of the skin lumps on the penis. Coding Level of Care Code New Pt Level 3 (08440) Diagnoses Sebaceous cyst of ear L72.3 Penile carbuncle N48.21 Time Spent (min) 30 Comment Patient visit, assessment, coordination of care
[2025-06-09 12:56] VITALS: BP 152/83; PULSE 90; BMI 24.1
== END 2025-06-09 13:15 | disposition home or self-care (01) ==
LOC: HO.HGS 12:55
PROVIDERS: PCP Internal Medicine; Visit Provider Surgery
DX: L72.3 Sebaceous cyst (principal); N48.21 Abscess of corpus cavernosum and penis
CPT/HCPCS: 99203

== ENCOUNTER 2025-06-16 13:10 | Outpatient (REF) | payer MEDICARE, MEDICAID, SELFPAY | END 2025-06-16 13:11 | disposition home or self-care (01) | LOC: HO.LNP 13:10 | PROVIDERS: PCP Internal Medicine; Visit Provider Nurse Practitioner Family | DX: K21.9 Gastro-esophageal reflux disease without esophagitis (principal); D12.6 Benign neoplasm of colon, unspecified; R19.7 Diarrhea, unspecified; Z55.0 Illiteracy and low-level literacy | CPT/HCPCS: 83013; 99202 ==

== ENCOUNTER 2025-06-16 13:10 | Outpatient (AMB) | payer MEDICARE, MEDICAID, SELFPAY ==
--- NOTE | 2025-06-16 13:44 | MHC.OFFVIS ---
Vital Signs 06/16/25 13:50 Height 5 ft 9 in Weight 163 lb BMI 24.1 BP 140/77 H Blood Pressure Location Lt brachial Position Sitting Pulse 75 Intake Visit Reasons: pre Colonoscopy recall Intake Note: Patient complex follow up for pre Colonoscopy recall/Anaya pt drake was 4and last Colonoscopy was 2020. Patient cc: acid reflux after dinner, poor appetite, and diarrhea with hot food. Patient Account Specialist Required: Yes Patient Account Specialist Name: Itz [id number] Accompanied by: Family/Other Allergies No Known Allergies (No Known Allergies*) Allergy (Verified 06/16/25 13:44) HPI HPI pre Colonoscopy recall: Details: Patient is a 65-year-old Estonian-speaking male with PMH of nicotine dependence, hyperlipidemia. Pt is accompanied by his girlfriend. Somewhat difficulty HPI despite virtual research assistant member. Patient reports daily bowel movements but describes a sensation of incomplete evacuation unless eating certain foods. Notes intermittent diarrhea occurring with the ingestion of hot temperature foods, accompanied by only mild abdominal pain, without associated rectal bleeding, significant cramping, nausea, or vomiting. Denies recent fever. No changes in appetite; weight remains stable in the 160s. Also reports experiencing heartburn and occasional regurgitation of liquid or food particles, beginning roughly 1 year ago and worsening over the past 2 months, not associated with dysphagia. No prior treatment for reflux; symptoms resolve without medication. Relevant comorbidities include significant colonic polyp history (with prior colonoscopies in 2020 and several polyps, including 10 polyps on a previous procedure in Jul 2020). No previous H. pylori testing. Family history notable for maternal stomach cancer. Denies drug allergies. No current chest pain or cardiopulmonary issues impacting GI care. Patient denies: fever/chills, n/v, appetite changes,dysphasia, unintentional wt loss, ab pain or melena/hematochezia. Social hx: -ETOH use up to 2 nips/day -denies recreational drug use -current 1/2 ppd smoker - family hx as below -denies personal hx of CA -tolerated anesthesia in the past without difficulty. [facility] Medical History (Updated 06/16/25 @ 15:09 by Essie Astorga CNP) Illiterate Acid reflux Diarrhea Tubulovillous adenoma Tubular adenoma of colon Nicotine dependence, cigarettes, uncomplicated Scrotal wall abscess Colon polyps History of back pain History of pneumonia Surgical History History of colonoscopy History of tooth extraction History of appendectomy Family History (Updated 06/16/25 @ 14:26 by Essie Astorga CNP) Father No problems noted. Mother Stomach cancer Sister No problems noted. Sister No problems noted. Social History Housing: Other Housing Other:: with family Alcohol intake: current Alcohol intake frequency: a few times a month Alcohol type: beer Comment: QD 5 nips Patient Tobacco Use Status: Current everyday Tobacco user Tobacco use type: Cigarette Cigarette Packs Per Day: 1 Cigarettes Per Day: 20 Years Smoked: since 13 years old 1.5 packs a day e-Cigarette/Vaping Use: Never Used Second Hand Smoke Exposure: Yes Advance Directives Date on File: 09/02/19 service: No Current occupational status: unemployed Current occupational exposures/hazards: No Cognitive needs: No Hearing needs: No Vision needs: No Review of Systems Const Reports as per HPI ENT Reports as per HPI Card Reports as per HPI Resp Reports as per HPI GI Reports as per HPI Reports as per HPI Physical Exam Vital Signs: BMI result Body Mass Index 24.1 Const General: healthy appearing, no acute distress and well developed Nutritional Appearance: average body habitus Orientation/consciousness: patient oriented x3 HEENT Head: Yes normal to inspection, Yes normocephalic and Yes atraumatic Face and sinus: Yes normal facial exam Eyes General: appearance normal, both eyes and all related structures Neck Neck: Yes normal visual inspection Resp Effort & Inspection: normal respiratory effort, able to speak in complete sentences, no tracheal deviation and symmetric chest movement Cardio Jugular venous distension: no JVD GI Inspection: Yes normal to inspection, No distended and Yes obesity (Minimal) Palpation (GI): Soft to palpation, not firm, nontender and No hepatosplenomegaly present Auscultation: normal bowel sounds Neuro General: patient oriented x3 Gait exam (Neuro): Normal gait present Psych Appearance: grossly normal Mental Status: mental status grossly normal Speech and movement: Normal speech and movement present Affect: normal affect Attitude: cooperative Thought process: Normal thought process present Thought content: Normal thought content present Insight: Good insight present (Psych) Judgement: Good judgement present (Psych) Results Reviewed Results Reviewed: Operative Note Date of Service: 03/02/21 Narrative: Operative Information Procedure Description: Colonoscopy COLONOSCOPY Instrument: Olympus variable stiffness pediatric scope 190L Colonoscopy Monitoring: Vital signs and clinical assessment, continuous EKG monitoring, Pulse oximetry, Carbon Dioxide monitoring and blood pressure monitoring were done throughout the procedure. Colon withdrawal time was 45 minutes. Procedure: The patient was placed in the left lateral decubitis position and pre-procedure medications were administered. After a digital rectal examination of the ano-rectum, the video colonoscope was inserted into the rectum and advanced through the colon to the cecum/TI. The colonoscope was slowly withdrawn in a retrograde panoramic fashion and the colon mucosa was carefully examined including a retroflexed view of the rectum. Findings and interventions are described below. Procedure Difficulty:easy Findings: Terminal Ileum-normal Cecum:normal Ascending Colon: normal Transverse Colon -normal Splenic flexure- 5 x 4 cm granular laterally spreading polypoid lesion noted. This was injected using ERBE jet with saline/methylene blue and lifted. It was then piece meal resected. Further injections of saline were performed after the polypoid tissue was debulked and then straight fire APC applied to the margins and the resected polyp area. 5 clips were then applied for closure of the defect. another 2 sessile polyps noted adjacent to the area in the transverse colon and removed with cold snare. Descending Colon:normal Sigmoid Colon: normal Rectum: Retroflexion with medium sized internal hemorrhoids, grade I Anorectum - normal Colon preparation: [place] Bowel Preparation Scale Right colon; 3 Transverse colon: 3 Left colon; 3 (0 = Unprepared colon segment with mucosa not seen due to solid stool that cannot be cleared. 1 = Portion of mucosa of the colon segment seen, but other areas of the colon segment not well seen due to staining, residual stool and/or opaque liquid. 2 = Minor amount of residual staining, small fragments of stool and/or opaque liquid, but mucosa of colon segment seen well. 3 = Entire mucosa of colon segment seen well with no residual staining, small fragments of stool or opaque liquid) Impression and Post Procedure Diagnosis: polyps s/p hybrid APC and cold snare resection internal hemorrhoids Plan: High fiber diet leaflet Avoid straining at stool, epsom salts and sitz bath, anusol supps or cream Repeat Colonoscopy in 3-4 months avoid nsaids for 5 days 7 d course of cipro and flagyl Above findings were reviewed with the patient and relevant handouts were provided if indicated. PATHOLOGY: Collected: 09/20/20 Location: [facility] Received: 09/20/20 Diagnosis A. Colon, splenic flexure, polypectomy: Fragments of tubular adenoma; negative for high grade dysplasia and carcinoma. B. Colon, transverse, polypectomy: Fragments of tubular adenoma; negative for high grade dysplasia and carcinoma. Clinical History Pre-Op Dx: Colon polyp Post-Op Dx: Colon polyps, hemorrhoids Operative Note Date of Service: 08/05/20 Narrative: Pre-op diagnosis: Colon cancer screening Post-op diagnosis: other (Colon polyps, diverticulosis, hemorrhoids) Procedure: COLONOSCOPY TO CECUM WITH BIOPSIES, SNARE POLYPECTOMY AND SUBMUCOSAL INJECTION Consent: Indications for the procedure and potential complications of bleeding, perforation, reaction to medications and missed diagnosis were discussed with the patient and informed consent was obtained. Instrument: Olympus PCF H 190 L variable stiffness pediatric colonoscope Monitoring: Vital signs and clinical assessment, intermittent blood pressure monitoring, continuous EKG monitoring, Pulse oximetry and Carbon Dioxide monitoring were done throughout the procedure. Colon withdrawl time was 45 minutes. Procedure: The patient was placed in the left lateral decubitis position and pre-procedure medications were administered. After a digital rectal examination of the ano-rectum, the video colonoscope was inserted into the rectum and advanced through the colon to the cecum. The colonoscope was slowly withdrawn in a retrograde panoramic fashion and the colon mucosa was carefully examined including a retroflexed view of the rectum. Findings and interventions are described below. Procedure Difficulty: Without difficulty Findings: Terminal Ileum: Not evaluated Cecum: Normal Ascending Colon: An 8-10 mm sessile polyp removed with a hot snare. Transverse Colon: Two 10-15 mm sessile polyps in proximal TC removed with a hot snare. Four 10-20 mm sessile polyps in distal TC removed with a hot snare A 5 x 3 cms polyp/mass overlying a fold at 55 cms (splenic flexure) raised with normal saline (submucosal injection) and not amenable to removal. Four superficial biopsies were obtained and matthew ink injected proximal to the polyp. Descending Colon: Moderate diverticulosis Sigmoid Colon: A 10 - 12 mm sessile polyp removed with a hot snare and moderate diverticulosis Rectum: Two 10-12 mm sessile polyps removed with a hot snare Ano-rectum: Moderate internal hemorrhoids Colon preparation: Good after some irrigation Impression and Post Procedure Diagnosis: Colonoscopy Findings: 10 polyps removed. A 5 x 3 cms polyp/mass overlying a fold at 55 cms (splenic flexure) raised with normal saline and not amenable to removal. Four superficial biopsies were obtained and matthew ink injected proximal to the polyp. Moderate diverticulosis seen in the left colon Moderate hemorrhoids on retroflexed exam. Plan: Await pathology results Patient has an appointment on 08/17/20 in the [facility] with YADY Perla. Repeat Colonoscopy in 1-[address] Gutierrez - if no cancer in polyp at 55 cms - for polyp removal with hybrid APC. Above findings were reviewed with the patient and [colon polyps] and [diverticulosis] handouts were given in the discharge area Pathology: A. Colon, ascending, polypectomy: Tubular adenoma; no high grade dysplasia or carcinoma seen. B. Colon, transverse, polypectomy: Fragments of tubular adenoma; no high-grade dysplasia or carcinoma seen. C. Colon, transverse at 55 cm, polypectomy: Fragments of tubular adenoma; no high-grade dysplasia or carcinoma seen. D. Colon, transverse #2, polypectomies: Tubular and tubulovillous adenomas; no high grade dysplasia or carcinoma seen. E. Colon, sigmoid, polypectomy: Hyperplastic mucosal polyp. F. Rectum, polypectomy: Hyperplastic mucosal polyp. Assessment & Plan Assessment & Plan (1) Acid reflux: Code(s): K21.9 - Gastro-esophageal reflux disease without esophagitis Category: Medical Qualifiers: Esophagitis presence: esophagitis presence not specified Qualified Code(s): K21.9 - Gastro-esophageal reflux disease without esophagitis Plan: One-year history of heartburn and regurgitation worsened in recent months; symptoms provoked by certain dietary triggers and responsive to lifestyle changes; no dysphagia or alarming symptoms; no prior therapy. GERD vs. Alcoholic gastritis vs. H. pylori gastritis Additional Testing: -Breath test for H. pylori; blood work -Upper endoscopy concurrent with colonoscopy Medication Management: Omeprazole daily on empty stomach Lifestyle Recommendations: Avoid dietary triggers (spicy, acidic, hot temperature foods, alcohol, smoking); avoid lying down after eating; avoid overeating Follow-Up: Symptom re-evaluation after endoscopy and colonoscopy; earlier if symptoms worsen (2) Diarrhea: Code(s): R19.7 - Diarrhea, unspecified Category: Medical Qualifiers: Diarrhea type: unspecified type Qualified Code(s): R19.7 - Diarrhea, unspecified Plan: History of numerous polyps, new or persistent change in BM pattern; family history of stomach cancer. IBS-D vs. microscopic colitis, IBD, colonic neoplasm Additional Testing: Scheduled colonoscopy and upper endoscopy; stool testing for infection, inflammation, and H. pylori; labs Medication Management: Colonoscopy preparation as prescribed Lifestyle Recommendations: As above regarding alcohol and smoking Follow-Up: At GI follow-up post-procedures or earlier with worsening symptoms (weight loss, rectal bleeding, increased pain/diarrhea) (3) Tubular adenoma of colon: Comment: 09/20/2020 colonoscopy complete with excellent prep-5 X 4 cm TA (Splenic flexure), TA x 2 (transverse) , medium sized internal hemorrhoids, grade I. Repeat Colonoscopy in 3-4 months. 08/05/2020 colonoscopy complete with good prep after irrigation-Ten polyps removed: 8-10 mm (Ascending), Two 10-15 mm ( proximal TC ); Four 10-20 mm (distal TC), A 5 x 3 cms polyp/mass overlying a fold at 55 cms (splenic flexure), Moderate diverticulosis (left colon), Moderate hemorrhoids on retroflexed exam, repeat Colonoscopy in 1-2 months Code(s): D12.6 - Benign neoplasm of colon, unspecified Category: Medical Plan: as above (4) Illiterate: Code(s): Z55.0 - Illiteracy and low-level literacy Category: Social Hx Plan: family member involved in documentation support due to patient?s literacy limitations. Plan Follow-up after endoscopy or sooner as needed Time: I spent a total of 50 minutes on the date of encounter which includes: Preparing to see the patient (reviewed previous documentation, test results and medical history) Performing a medically appropriate exam and/or evaluation Ordering medications, tests, and procedures Documenting clinical information in the health record Orders: Orders Calprotectin, Fecal Today R19.7 - Diarrhea, unspecified Transglutaminase IgA Today R19.7 - Diarrhea, unspecified CDiff Gene PCR Today R19.7 - Diarrhea, unspecified GI Panel Today R19.7 - Diarrhea, unspecified H Pylori Breath Test Today K21.9 - Gastro-esophageal reflux disease without esophagitis C Reactive Protein Today R19.7 - Diarrhea, unspecified Referrals GI Procedure Notification D12.6 - Benign neoplasm of colon, unspecified, K21.9 - Gastro-esophageal reflux disease without esophagitis, Z12.11 - Encounter for screening for malignant neoplasm of colon Medications: New bisacodyl take four tablets once day of colonoscopy prep 20 mg (4 x 5 mg) PO ONCE 4 tabs 0RF peg 3350-electrolytes [id number] -5.86 gram until fecal effluent is clear 240 mL PO ONCE 4,000 mL 0RF simethicone (Gas Relief (simethicone)) per colonoscopy prep instructions 500 mg (4 x 125 mg) PO ONCE 4 caps 0RF abdominal distention omeprazole Take one tablet daily. Best taken on an empty, 30 minutes before eating. 20 mg PO DAILY 90 caps 1RF Coding Level of Care Code New Pt New Pt Level 4 (50102) Patient Type New Diagnoses Gastroesophageal reflux disease, unspecified whether esophagitis present K21.9 Esophagitis presence: esophagitis presence not specified Diarrhea, unspecified type R19.7 Diarrhea type: unspecified type Tubular adenoma of colon D12.6 Illiterate Z55.0
[2025-06-16 13:50] VITALS: BP 140/77; PULSE 75; BMI 24.1
== END 2025-06-16 15:20 | disposition home or self-care (01) ==
LOC: HO.HGI 13:11
PROVIDERS: PCP Internal Medicine; Visit Provider Nurse Practitioner Family
DX: K21.9 Gastro-esophageal reflux disease without esophagitis (principal); R19.7 Diarrhea, unspecified; D12.6 Benign neoplasm of colon, unspecified; Z55.0 Illiteracy and low-level literacy
CPT/HCPCS: 99204